=== PATIENT | male | born 1930 | race Caucasian/White ===

== ENCOUNTER 2018-05-09 16:33 | Inpatient (IN) | payer MEDICARE, OTHER ==
[~2018-05-09] VITALS: Ht 182.9 cm; Wt 71.4 kg
--- NOTE | ~2018-05-09 | CN ---
PATIENT NAME:SHIRLEY DUNHAM MEDICAL RECORD: [id number] : [birth year] LOCATION:[facility] D.2128 ADMIT DATE: 05/10/18 ACCOUNT: [id number] CONSULTING PHYSICIAN: JOSEPH SILVERIO MD REFERRING PHYSICIAN: KATLYN ALEJANDRA MD DATE OF CONSULTATION: 05/11/2018 HISTORY OF PRESENT ILLNESS: An 87-year-old gentleman with no known history of coronary artery disease, actually healthy for 87 years of age was at [facility], his place of residence, when he had a syncopal episode. No prodrome, no visual changes, no postictal state, found to have a compression fracture. We are asked to see him concerning his cardiovascular status. PAST MEDICAL HISTORY: Includes a history of cataract surgery and BPH. ALLERGIES: No known allergies. MEDICATIONS: Vitamin B and vitamin D supplementation only. SOCIAL HISTORY: Retired from education. He is a nonsmoker, nondrinker. Easily able to take care of his ADLs. REVIEW OF SYSTEMS: The patient reports easy bruising but reports no swollen glands. The patient reports no fever, no night sweats, no significant weight gain, no significant weight loss. No significant exercise tolerance. The patient reports no dry eyes, no irritation, no vision change. Patient reports no difficulty hearing and no ear pain. Patient reports no frequent nose bleeds or nose and sinus problems. Patient reports on arm pain on exertion. No shortness of breath while lying down. No history of heart murmur. Patient reports no cough, no wheezing or coughing up blood. Patient reports no abdominal pain, no vomiting. Normal appetite. No diarrhea and not vomiting blood. No nausea and no constipation. Patient reports no incontinence. No difficulty urinating. No hematuria. No increased frequency. Patient reports no muscle aches. No weakness, no arthralgias, no back pain. No swelling of the extremities. Patient reports no abnormal mole, no jaundice, no rashes. Reports no loss of consciousness. No weakness and no numbness. No seizures, dizziness, or headaches. The patient reports no depression, no sleep disturbance, feeling safe in a relationship and no alcohol abuse. Patient reports on fatigue. Reports no runny nose or sinus pressure. No itching, no hives, and no frequent sneezing. PHYSICAL EXAMINATION: GENERAL: Pleasant gentleman, appears stated age, in no acute distress. VITAL SIGNS: Blood pressure 137/77, pulse 84 and regular. HEENT: Normocephalic, atraumatic. NECK: No bruits noted. HEART: Regular. II/ systolic ejection murmur. LUNGS: Clear. ABDOMEN: Soft, nontender. EXTREMITIES: Pulses 2+. No edema. DIAGNOSTIC DATA: ECG without acute change. IMPRESSION: Syncope. Difficult to elucidate the etiology at this point. Dopplers are negative. Telemetry: No significant bradyarrhythmias or CONSULT REPORT [id number] SHIRLEY DUNHAM tachyarrhythmias. Echocardiogram study shows preserved LV function. Agree with current management. No contraindication to a rehabilitation stay if indicated from a cardiovascular standpoint. TRANSINT:[id number] Voice Confirmation ID: [id number] DOCUMENT ID: [id number] JOSEPH SILVERIO MD at 1505 CC: [id number] DICTATION DATE: 05/11/18 1516 MODEL MAKER PLASTER: 05/11/18 1530 DIS IN 05/12/18 [facility] [address] [place] [address]
--- NOTE | ~2018-05-09 | EC ---
PATIENT:SHIRLEY DUNHAM DATE OF SERVICE: 05/09/18 SEX: M MEDICAL RECORD: [id number] DATE OF : [birth year] LOCATION:D.M2 D.212 AGE OF PATIENT: 87 ADMISSION DATE: 05/10/18 REFERRING PHYSICIAN: INTERPRETING PHYSICIAN: GAY ROMAN MD ECHOCARDIOGRAM REPORT ECHO CHARGES 4 ECHO COMPLETE Date: 05/10 CLINICAL DIAGNOSIS: SYNCOPE ECHOCARDIOGRAPHIC MEASUREMENTS (adult normal given) AC root (d.<3.7cm) 3.2 cm LV Septum d (<1.2 cm> 1.5 cm Valve Excursion 1.3 cm LV Septum (systole) 1.6 cm Left Atria (s.<4.0cm> 4.0 cm LVPW d(<1.2cm) 1.3 cm RV (d.<2.3cm) 3.6 cm LVPW (sytole) 1.6 cm LV diastole(<5.6CM) 5.3 cm MV E-F(>70mm/sec) cm LV systole 4.1 cm LVOT Diameter 4.1 cm MV exc.(>10mm) 1.4 cm Est.ejection fraction (50-75%) % DOPPLER: LVIT cm/sec A 66.0 cm/sec E 46.0 cm/sec LA cm/sec RVSP 31 mmHg LVOT 86 cm/sec AOP1/2T m/s Asc. Ao 165 cm/sec RVOT 68 cm/sec RA cm/sec PA 147 cm/sec AV Gradient Peak 10.84mmHg AV Mean 6.14 mmHg AV Area 1.6 cm MV Gradient Peak 2.75 mmHg MV Mean 1.32 mmHg MV Area cm COMMENTS: Tar Worker: Priscilla HODGES Firer Tunnel Kiln: 1 Dr. Roman TAPE# PACS Pericardial Effusion N DATE OF SERVICE: 05/10/2018 ECHOCARDIOGRAM DATE OF SERVICE: 05/10/2018 FINDINGS: 1. Left ventricular chamber size is within normal limits. Left ventricular systolic function is normal. Overall ejection fraction estimated at 60%. 2. Left atrium, right atrium, and right ventricle chamber sizes are mildly ECHOCARDIOGRAM REPORT [id number] SHIRLEY DUNAHM dilated. 3. Valvular structures: Aortic valve demonstrates mild calcific aortic stenosis, valve area calculates 1.6 cm-squared with gradient of 11 mm across the valve. 4. The mitral valve. The mitral valve demonstrates prolapse of the posterior leaflet. The remaining valvular structures have normal structure and motion. Doppler interrogation elsewise reveals mild aortic insufficiency, moderate mitral regurgitation, [id number]-[id number] tricuspid regurgitation, no other valvular insufficiency or stenosis. Pulmonary systolic pressure is preserved at 31 mmHg. 5. No evidence of pericardial effusion or left ventricular thrombus. TRANSINT:[id number] Voice Confirmation ID: [id number] DOCUMENT ID: [id number] GAY ROMAN MD at 1325 CC: [id number] DICTATION DATE: 05/10/18 1131 SIGHTSEEING GUIDE: 05/10/18 1213 ADM IN [facility] [address] [place] [place] [id number]
[2018-05-09] MEDS ORDERED: CALCIUM 250+D T1 TAB PO (16:39)
[2018-05-09] MEDS ORDERED: VITAMIN B-12500 MCG PO (16:39)
[2018-05-09 17:12] LABS: BASOPHILS 0.2 % (0-2); EOSINOPHILS 0.4 % (0-7); HEMATOCRIT 40.7 % (42.0-54.0); HEMOGLOBIN 13.5 g/dL (13.5-17.5); IMMATURE GRANULOCYTES 0.4 % (0-5); LYMPHOCYTES 18.5 % (15-50); MCH 31.1 pg (26.0-34.0); MCHC 33.2 g/dL (31.0-37.0); MCV 93.8 fL (80.0-100.0); MEAN PLATELET VOLUME 12.3 fL (7.4-10.4); MONOCYTES 11.6 % (2-11); NEUTROPHILS 68.9 % (40-80); RBC 4.34 10x6/uL (4.20-6.10); WBC 5.6 10x3/uL (4.8-10.8)
[2018-05-09 17:19] LABS: PLATELET COUNT 108 10x3/uL (130-400)
[2018-05-09 17:27] LABS: ALBUMIN 3.4 g/dL (3.4-5.0); ALKALINE PHOSPHATASE 67 U/L (46-116); ALT (SGPT) 23 U/L (10-68); BILIRUBIN - TOTAL 0.45 mg/dL (0.2-1.3); CALC OSMOLALITY 286 mosm/kg (275-300); CALCIUM 8.6 mg/dL (8.5-10.1); CARBON DIOXIDE 31.2 mmol/L (21.0-32.0); CHLORIDE - SERUM 105 mmol/L (98-107); GLUCOSE 95 mg/dL (74-106); POTASSIUM - SERUM 4.4 mmol/L (3.5-5.1); SODIUM 143 mmol/L (136-145); UREA NITROGEN 17 mg/dL (7-18); eGFR NON AFRICAN AMERICAN 75 mL/min (90-120)
[2018-05-09 17:49] LABS: CKMB 1.3 U/L (0.0-3.6); CREATINE KINASE 74 UL (21-232)
[2018-05-09 17:50] LABS: TROPONIN-I < 0.017 ng/mL (0.000-0.060)
[2018-05-09 18:53] LABS: APPEARANCE CLEAR (CLEAR); BILIRUBIN NEGATIVE (NEGATIVE); COLOR YELLOW (YELLOW); GLUCOSE NEGATIVE (NEGATIVE); KETONE NEGATIVE (NEGATIVE); NITRITE NEGATIVE (NEGATIVE); PROTEIN NEGATIVE (NEGATIVE); SPECIFIC GRAVITY 1.015 (1.005-1.020); UROBILINOGEN NORMAL (NORMAL)
[2018-05-09 18:57] LABS: RED CELLS - URINE OCC /hpf (0-5); WHITE CELLS - URINE 0-5 /hpf (0-5)
[2018-05-09 18:58] LABS: BACTERIA FEW /hpf (NONE SEEN)
[2018-05-09 19:30] VITALS: BP 168/93
[2018-05-09 20:39] LABS: CKMB 1.3 U/L (0.0-3.6); CREATINE KINASE 65 UL (21-232)
[2018-05-09 20:45] LABS: TROPONIN-I < 0.017 ng/mL (0.000-0.060)
[2018-05-10 01:03] VITALS: BP 173/97; BMI 22.5
[2018-05-10 02:33] LABS: CKMB 1.4 U/L (0.0-3.6); CREATINE KINASE 67 UL (21-232); TROPONIN-I < 0.017 ng/mL (0.000-0.060)
[2018-05-10 06:57] VITALS: BP 152/89
[2018-05-10 08:10] LABS: BASOPHILS 0.3 % (0-2); EOSINOPHILS 0 % (0-7); HEMATOCRIT 42.8 % (42.0-54.0); HEMOGLOBIN 14.4 g/dL (13.5-17.5); IMMATURE GRANULOCYTES 0.1 % (0-5); LYMPHOCYTES 17.1 % (15-50); MCH 31.5 pg (26.0-34.0); MCHC 33.6 g/dL (31.0-37.0); MCV 93.7 fL (80.0-100.0); MEAN PLATELET VOLUME 11.9 fL (7.4-10.4); NEUTROPHILS 72.5 % (40-80); RBC 4.57 10x6/uL (4.20-6.10); RDW 13.7 % (11.5-14.5)
[2018-05-10 08:13] LABS: PLATELET COUNT 147 10x3/uL (130-400); WBC 7.7 10x3/uL (4.8-10.8)
[2018-05-10 08:50] LABS: CALCIUM 8.7 mg/dL (8.5-10.1); CARBON DIOXIDE 28.1 mmol/L (21.0-32.0); CHLORIDE - SERUM 103 mmol/L (98-107); CKMB 1.5 U/L (0.0-3.6); CREATINE KINASE 60 UL (21-232); CREATININE - SERUM 0.8 mg/dL (0.6-1.3); GLUCOSE 112 mg/dL (74-106); SODIUM 136 mmol/L (136-145); TROPONIN-I < 0.017 ng/mL (0.000-0.060); eGFR NON AFRICAN AMERICAN > 90 mL/min (90-120)
[2018-05-10 08:51] LABS: CALC OSMOLALITY 271 mosm/kg (275-300); POTASSIUM - SERUM 3.5 mmol/L (3.5-5.1); UREA NITROGEN 11 mg/dL (7-18)
[2018-05-10 09:18] VITALS: BP 145/71
[2018-05-10 12:39] VITALS: BP 136/77
[2018-05-10 16:02] LABS: CKMB 1.8 U/L (0.0-3.6); CREATINE KINASE 57 UL (21-232)
[2018-05-10 16:05] LABS: TROPONIN-I < 0.017 ng/mL (0.000-0.060)
[2018-05-10 16:34] VITALS: BP 138/77
[2018-05-10 20:38] LABS: CKMB 2.1 U/L (0.0-3.6); CREATINE KINASE 69 UL (21-232); TROPONIN-I < 0.017 ng/mL (0.000-0.060)
[2018-05-10 21:08] VITALS: BP 120/71
[2018-05-11 01:40] VITALS: BP 152/76
[2018-05-11 03:44] LABS: CKMB 1.9 U/L (0.0-3.6); CREATINE KINASE 72 UL (21-232)
[2018-05-11 03:49] LABS: TROPONIN-I < 0.017 ng/mL (0.000-0.060)
[2018-05-11 05:40] VITALS: BP 133/73
[2018-05-11 07:09] LABS: BASOPHILS 0 % (0-2); EOSINOPHILS 0.1 % (0-7); HEMATOCRIT 42.2 % (42.0-54.0); HEMOGLOBIN 14.1 g/dL (13.5-17.5); IMMATURE GRANULOCYTES 0.1 % (0-5); LYMPHOCYTES 8.4 % (15-50); MCH 31.3 pg (26.0-34.0); MCHC 33.4 g/dL (31.0-37.0); MCV 93.8 fL (80.0-100.0); MEAN PLATELET VOLUME 12.5 fL (7.4-10.4); MONOCYTES 12.3 % (2-11); NEUTROPHILS 79.1 % (40-80); PLATELET COUNT 138 10x3/uL (130-400); RDW 13.6 % (11.5-14.5); WBC 7.5 10x3/uL (4.8-10.8)
[2018-05-11 07:46] LABS: ALBUMIN 3.2 g/dL (3.4-5.0); ALKALINE PHOSPHATASE 68 U/L (46-116); ALT (SGPT) 19 U/L (10-68); CALC OSMOLALITY 282 mosm/kg (275-300); CALCIUM 8.4 mg/dL (8.5-10.1); CARBON DIOXIDE 30.7 mmol/L (21.0-32.0); CHLORIDE - SERUM 106 mmol/L (98-107); CREATININE - SERUM 0.6 mg/dL (0.6-1.3); GLUCOSE 103 mg/dL (74-106); POTASSIUM - SERUM 3.9 mmol/L (3.5-5.1); PROTEIN - SERUM 6.5 g/dL (6.4-8.2); SODIUM 143 mmol/L (136-145); UREA NITROGEN 8 mg/dL (7-18); eGFR NON AFRICAN AMERICAN > 90 mL/min (90-120)
[2018-05-11 09:38] VITALS: BP 135/78
[2018-05-11 12:00] VITALS: BP 137/77
[2018-05-11 13:43] VITALS: Ht 182.9 cm; Wt 71.4 kg
[2018-05-11 17:35] VITALS: BP 121/72
[2018-05-11 20:36] VITALS: BP 151/77
[2018-05-12 00:51] VITALS: BP 127/72
[2018-05-12 04:51] LABS: BASOPHILS 0 % (0-2); EOSINOPHILS 0.1 % (0-7); HEMATOCRIT 40.5 % (42.0-54.0); HEMOGLOBIN 13.5 g/dL (13.5-17.5); IMMATURE GRANULOCYTES 0.2 % (0-5); LYMPHOCYTES 9.8 % (15-50); MCH 31.3 pg (26.0-34.0); MCHC 33.3 g/dL (31.0-37.0); MEAN PLATELET VOLUME 12.2 fL (7.4-10.4); MONOCYTES 14.9 % (2-11); PLATELET COUNT 144 10x3/uL (130-400); RBC 4.31 10x6/uL (4.20-6.10); RDW 13.7 % (11.5-14.5)
[2018-05-12 05:13] LABS: ALBUMIN 2.9 g/dL (3.4-5.0); ALKALINE PHOSPHATASE 63 U/L (46-116); ALT (SGPT) 17 U/L (10-68); BILIRUBIN - TOTAL 1.23 mg/dL (0.2-1.3); CALC OSMOLALITY 279 mosm/kg (275-300); CALCIUM 8.6 mg/dL (8.5-10.1); CHLORIDE - SERUM 105 mmol/L (98-107); CREATININE - SERUM 0.7 mg/dL (0.6-1.3); GLUCOSE 117 mg/dL (74-106); POTASSIUM - SERUM 3.7 mmol/L (3.5-5.1); PROTEIN - SERUM 6.3 g/dL (6.4-8.2); SODIUM 140 mmol/L (136-145); eGFR NON AFRICAN AMERICAN > 90 mL/min (90-120)
[2018-05-12 05:14] LABS: UREA NITROGEN 12 mg/dL (7-18)
[2018-05-12 06:20] VITALS: BP 120/66
[2018-05-12] MEDS ORDERED: NORCO-5 PO (14:43)
[2018-05-12] MEDS ORDERED: PROTONIX40 MG PO (14:43)
[2018-05-12] MEDS ORDERED: HYDROCODON-ACE1 EAC7 PO (14:56)
== END 2018-05-12 18:15 | DRG 312 ==
LOC: D.ER 16:33 → D.M2 19:52 → D.EDHOLD 19:52 → OBSVTIME 19:53 → D.M2 21:43
PROVIDERS: Family Medicine
DX: R55 Syncope and collapse (principal); M48.56XA Collapsed vertebra, not elsewhere classified, lumbar region, initial encounter for fracture; S01.01XA Laceration without foreign body of scalp, initial encounter; W19.XXXA Unspecified fall, initial encounter; I08.3 Combined rheumatic disorders of mitral, aortic and tricuspid valves; N40.0 Benign prostatic hyperplasia without lower urinary tract symptoms

== ENCOUNTER 2018-05-12 16:55 | Inpatient (IN) | payer MEDICARE, OTHER ==
[~2018-05-12] VITALS: Ht 182.9 cm; Wt 75.3 kg
--- NOTE | ~2018-05-12 | RHP ---
PATIENT: SHIRLEY DUNHAM MEDICAL RECORD: [id number] ACCOUNT: [id number] LOCATION:[facility]1119 : [birth year] ADMISSION DATE: 05/12/18 REHABILITATION HISTORY AND PHYSICAL EXAMINATION POST ADMISSION PHYSICIAN EXAMINATION POST-ADMISSION PHYSICAL EXAMINATION AND HISTORY AND PHYSICAL DATE OF ADMISSION: 05/12/2018 ADMITTING DIAGNOSIS: L4 compression fracture. HISTORY OF PRESENT ILLNESS: The patient admitted to the inpatient rehab with spinal cord dysfunction, traumatic, secondary to an L4 compression fracture. He is an 87-year-old gentleman, who lives at [facility]. He presented to the Emergency Room after a syncopal spell. He remembers standing and then passing out. He was admitted with complaints of back pain. He has no history of prior compression fracture or back pain. X-rays of the lumbar spine showed mild compression with L4 fracture. He has known history of BPH, colorectal cancer, peripheral neuropathy, hepatitis. He was seen and followed by cardiology, neurosurgery, PT and speech therapy. He has been placed on nectar-thickened liquids. He is on telemetry. He has had some recent episodes noted of urinary incontinence that is new. He lives at [facility] in an apartment. Cares for his that has Alzheimer's. He was independent with ADLs and moderately independent with the use of rolling walker. He is currently set up max assist for ADLs and [id number] assist for mobility. He plans to return back to his apartment with his and hopefully get back to his prior level of functioning. Comorbidities in this patient include oropharyngeal dysphagia, acute abrasion to scalp, syncope, acute head injury, compression fracture, back pain, weakness, self-care deficit. He has got a history of dilatation of his atrium. He also has a gradient across one of his valves in his heart. PAST MEDICAL HISTORY: Significant for BPH, colorectal cancer, hepatitis, and peripheral neuropathy. PAST SURGICAL HISTORY: Includes transurethral resection of the prostate, cataract surgery, and colon resection. ALLERGIES: No known drug allergies. CURRENT MEDICATIONS: Include Protonix 40 mg daily. He is on B12 at 500 mcg daily, hydrocodone 5/325 one tab every 6 hours p.r.n., and MiraLax 17 g in 8 ounces of water daily. HABITS: No current alcohol or tobacco use. FAMILY HISTORY: Noncontributory. SOCIAL HISTORY: The patient hopes to return back home and get back to his prior level of functioning. REVIEW OF SYSTEMS: GENERAL: Does complain of weakness and fatigue. HEENT: Denies cold, cough, or congestion. HISTORY AND PHYSICAL [id number] DUNHAMSHIRLEY Palmer CARDIOVASCULAR: Denies chest pain. PHYSICAL EXAMINATION: VITAL SIGNS: Stable, afebrile. GENERAL: Elderly gentleman, in no acute distress, alert upon exam. HEENT: Normocephalic and atraumatic. Mucosa moist. NECK: Supple. No adenopathy. LUNGS: Clear. HEART: Regular rate and rhythm, although he is bradycardic. ABDOMEN: Benign. EXTREMITIES: No clubbing. NEUROLOGIC: He does have noted weakness. LABORATORY DATA: White count is 10.3, H&H of 14 and 41, and platelet count was noted to be 119. Sodium 138, potassium 4.1, BUN and creatinine of 14 and 0.7, blood sugar is noted to be 97. ASSESSMENT: This is an 87-year-old gentleman admitted to the rehab with a working diagnosis of spinal cord dysfunction secondary to a compression fracture. The patient has potential to make improvement. We will institute the following multidisciplinary therapies including, but not limited to, physical, occupational, respiratory, speech, nutritional services, prosthetics, and orthotics. Given his complex medical condition and risk for more complications, rehabilitation services cannot be provided at a low level of care such as usp facility. PLAN: 1. Admit to [facility] for intensive inpatient therapy to include the following disciplines: A. Physical therapy to improve gait, all transfer skills and bed mobility to a modified independent level. B. Occupational therapy to improve activities of daily living to a modified independent level. C. Case management to assist with discharge planning and placement options. D. Nutrition to assist with nutritional needs. E. Rehabilitation nursing to assist in monitoring the patient's underlying medical conditions and to assist with any type of bowel or bladder management. 2. The patient's current medication and medical care will be continued. 3. The patient will be placed on standard fall precautions. 4. The patient's estimated length of stay is approximately 7 to 10 days. 5. We will discuss this patient during care team staff meeting this week. TRANSINT:[id number] Voice Confirmation ID: [id number] DOCUMENT ID: [id number] ALISSA notes whether there has been none or any medical/functional change since admission: - No change since prescreen. ALISSA attests patient continues to be appropriate for IRF: - Continues to be appropriate. HISTORY AND PHYSICAL [id number] SHIRLEY DUNHAM SCOTT MD at 1443 CC: [id number] DICTATION DATE: 05/13/18 0850 POULTRY INSPECTOR: 05/13/18 0953 ADM IN [place] [id number] [place] [id number]
--- NOTE | ~2018-05-12 | CN ---
PATIENT NAME:SHIRLEY DUNHAM MEDICAL RECORD: [id number] : [birth year] LOCATION:[facility]1119 ADMIT DATE: 05/12/18 ACCOUNT: [id number] CONSULTING PHYSICIAN: CRUZ HART MD REFERRING PHYSICIAN: JESSICA LEBRON MD DATE OF CONSULTATION: 05/25/2018 HISTORY OF PRESENT ILLNESS: Mr. Dunham is an 87-year-old male. He is admitted for a compression fracture in his back. He has been having problems with dizziness for he gets is roughly 3 weeks in total. He says the each event has just occurred spontaneously and almost instantaneously. He has been standing for every time, but sometimes such as [employer], he had been up walking around for hours, so it did not seem orthostatic or related with standing up. He has not had any problems when he was sitting or lying down. The symptoms come on almost instantly, it feels like he is going to faint. He can just feel himself going down. He does not have any false perception of movement or spinning or any ear symptoms, although he says when he is really lightheaded he does feel like his voice is echoing in his head or other voices are. He says the symptoms go away almost immediately upon sitting down within less than a minute, it was completely back to normal and his symptoms have resolved. He does not have any lateralizing ear symptoms, may be hard of hearing, but both ears seem the same and nothing has changed recently. He does not have any tenderness. There is no nausea or vomiting. PAST MEDICAL HISTORY: Reviewed on the chart. PHYSICAL EXAMINATION: GENERAL: He is in a wheelchair. He is alert and oriented. Good historian, normal voice. FACE: Normal, symmetric, no lesions. EYES: Sclerae and conjunctivae are normal. EARS: Canals and TMs are normal. No middle ear effusion, no retraction, they look good. NOSE: No mass, polyps or drainage. ORAL CAVITY AND OROPHARYNX: Tongue protrudes in the midline. Pharynx is normal. Palate is normal. NECK: No masses, no adenopathy. No thyromegaly. No bruits. NEUROLOGIC: His oculocephalic reflex is intact. No nystagmus in any field of gaze. No tremor, no rigidity. His tuning forks Hendrix and Spencer are normal with 256. IMPRESSION: Dizziness. Really looks like he is having syncopal/presyncopal episodes. There is really no indication of a vestibular etiology for his problems. It is hard to say what the cause might be, but does not seem related to an ear problem. TRANSINT:[id number] Voice Confirmation ID: [id number] DOCUMENT ID: [id number] CONSULT REPORT [id number] SHIRLEY DUNHAM, CRUZ PHILLIPS at 1254 CC: [id number] DICTATION DATE: 05/25/18 1357 LINOLEUM FLOOR LAYER: 05/25/18 1430 DIS IN 05/26/18 [place] [id number] [place] [id number]
[~2018-05-12 16:55] MED LIST: CALCIUM 250+D T1 TAB PO; HYDROCODON-ACE1 EAC7 PO; NORCO-5 PO; PROTONIX40 MG PO; VITAMIN B-12500 MCG PO
[2018-05-12 19:00] VITALS: BP 108/60
[2018-05-12 22:51] VITALS: BP 108/60
[2018-05-13 07:02] LABS: HEMATOCRIT 41.1 % (42.0-54.0); HEMOGLOBIN 13.9 g/dL (13.5-17.5); LYMPHOCYTES 11.3 % (15-50); MCH 31.4 pg (26.0-34.0); MCHC 33.8 g/dL (31.0-37.0); MEAN PLATELET VOLUME 11.8 fL (7.4-10.4); NEUTROPHILS 78.2 % (40-80); PLATELET COUNT 119 10x3/uL (130-400); RBC 4.42 10x6/uL (4.20-6.10); RDW 14.1 % (11.5-14.5); WBC 10.3 10x3/uL (4.8-10.8)
[2018-05-13 07:26] LABS: CALC OSMOLALITY 276 mosm/kg (275-300); CALCIUM 8.5 mg/dL (8.5-10.1); CARBON DIOXIDE 28.1 mmol/L (21.0-32.0); CHLORIDE - SERUM 104 mmol/L (98-107); CREATININE - SERUM 0.7 mg/dL (0.6-1.3); GLUCOSE 97 mg/dL (74-106); POTASSIUM - SERUM 4.1 mmol/L (3.5-5.1); SODIUM 138 mmol/L (136-145); UREA NITROGEN 14 mg/dL (7-18); eGFR NON AFRICAN AMERICAN > 90 mL/min (90-120)
[2018-05-13 08:00] VITALS: BP 122/55
[2018-05-13 10:20] VITALS: Ht 182.9 cm; Wt 75.3 kg
[2018-05-13 19:00] VITALS: BP 113/47
[2018-05-15 05:46] VITALS: BP 134/64
[2018-05-15 08:00] VITALS: BP 118/61
[2018-05-15 21:00] VITALS: BP 130/76
[2018-05-16 07:28] LABS: BASOPHILS 0 % (0-2); EOSINOPHILS 1.2 % (0-7); HEMATOCRIT 38.5 % (42.0-54.0); IMMATURE GRANULOCYTES 0.3 % (0-5); LYMPHOCYTES 16.3 % (15-50); MCH 31.2 pg (26.0-34.0); MCHC 33.8 g/dL (31.0-37.0); MCV 92.3 fL (80.0-100.0); MEAN PLATELET VOLUME 11.8 fL (7.4-10.4); MONOCYTES 13.3 % (2-11); NEUTROPHILS 68.9 % (40-80); RBC 4.17 10x6/uL (4.20-6.10); RDW 13.4 % (11.5-14.5); WBC 5.8 10x3/uL (4.8-10.8)
[2018-05-16 07:34] LABS: PLATELET COUNT 170 10x3/uL (130-400)
[2018-05-16 07:45] LABS: CALC OSMOLALITY 279 mosm/kg (275-300); CARBON DIOXIDE 30.7 mmol/L (21.0-32.0); CHLORIDE - SERUM 105 mmol/L (98-107); CREATININE - SERUM 0.5 mg/dL (0.6-1.3); GLUCOSE 107 mg/dL (74-106); POTASSIUM - SERUM 3.4 mmol/L (3.5-5.1); SODIUM 141 mmol/L (136-145); UREA NITROGEN 11 mg/dL (7-18); eGFR NON AFRICAN AMERICAN > 90 mL/min (90-120)
[2018-05-16 07:49] LABS: CALCIUM 9.1 mg/dL (8.5-10.1)
[2018-05-16 08:23] VITALS: BP 139/78
[2018-05-16 19:00] VITALS: BP 113/62
[2018-05-17 08:28] VITALS: BP 125/70
[2018-05-17 19:00] VITALS: BP 116/74
[2018-05-18 07:00] LABS: BASOPHILS 0.2 % (0-2); EOSINOPHILS 1.1 % (0-7); HEMATOCRIT 39.5 % (42.0-54.0); IMMATURE GRANULOCYTES 0.2 % (0-5); LYMPHOCYTES 20.7 % (15-50); MCH 30.9 pg (26.0-34.0); MCHC 32.9 g/dL (31.0-37.0); MCV 93.8 fL (80.0-100.0); MEAN PLATELET VOLUME 11.9 fL (7.4-10.4); MONOCYTES 14.3 % (2-11); NEUTROPHILS 63.5 % (40-80); RBC 4.21 10x6/uL (4.20-6.10); RDW 13.8 % (11.5-14.5); WBC 6.4 10x3/uL (4.8-10.8)
[2018-05-18 07:07] LABS: PLATELET COUNT 227 10x3/uL (130-400)
[2018-05-18 07:27] LABS: CALCIUM 8.6 mg/dL (8.5-10.1); CARBON DIOXIDE 32.4 mmol/L (21.0-32.0); CHLORIDE - SERUM 105 mmol/L (98-107); GLUCOSE 95 mg/dL (74-106); SODIUM 143 mmol/L (136-145)
[2018-05-18 07:31] LABS: CALC OSMOLALITY 285 mosm/kg (275-300); CREATININE - SERUM 0.7 mg/dL (0.6-1.3); UREA NITROGEN 16 mg/dL (7-18); eGFR NON AFRICAN AMERICAN > 90 mL/min (90-120)
[2018-05-18 08:19] VITALS: BP 143/67
[2018-05-18 19:00] VITALS: BP 117/67
[2018-05-19 08:25] VITALS: BP 153/79
[2018-05-19 19:00] VITALS: BP 113/49
[2018-05-20 06:24] LABS: BASOPHILS 0.3 % (0-2); EOSINOPHILS 1.4 % (0-7); HEMOGLOBIN 12.3 g/dL (13.5-17.5); IMMATURE GRANULOCYTES 0.3 % (0-5); LYMPHOCYTES 17.9 % (15-50); MCH 30.6 pg (26.0-34.0); MCHC 32.4 g/dL (31.0-37.0); MCV 94.5 fL (80.0-100.0); MONOCYTES 12.9 % (2-11); NEUTROPHILS 67.2 % (40-80); PLATELET COUNT 246 10x3/uL (130-400); RBC 4.02 10x6/uL (4.20-6.10); RDW 13.8 % (11.5-14.5); WBC 7.4 10x3/uL (4.8-10.8)
[2018-05-20 07:02] LABS: CALC OSMOLALITY 288 mosm/kg (275-300); CALCIUM 8.3 mg/dL (8.5-10.1); CARBON DIOXIDE 31.7 mmol/L (21.0-32.0); CHLORIDE - SERUM 106 mmol/L (98-107); CREATININE - SERUM 0.7 mg/dL (0.6-1.3); GLUCOSE 81 mg/dL (74-106); POTASSIUM - SERUM 4.3 mmol/L (3.5-5.1); SODIUM 145 mmol/L (136-145); UREA NITROGEN 15 mg/dL (7-18); eGFR NON AFRICAN AMERICAN > 90 mL/min (90-120)
[2018-05-20 08:14] VITALS: BP 138/85
[2018-05-20 19:00] VITALS: BP 129/72
[2018-05-21 08:00] VITALS: BP 140/76
[2018-05-22 10:37] VITALS: BP 139/59
[2018-05-22 20:00] VITALS: BP 126/63
[2018-05-23 07:07] LABS: BASOPHILS 0 % (0-2); EOSINOPHILS 1.1 % (0-7); HEMATOCRIT 41.3 % (42.0-54.0); HEMOGLOBIN 13.4 g/dL (13.5-17.5); IMMATURE GRANULOCYTES 0.3 % (0-5); LYMPHOCYTES 21.7 % (15-50); MCH 30.6 pg (26.0-34.0); MCHC 32.4 g/dL (31.0-37.0); MCV 94.3 fL (80.0-100.0); MEAN PLATELET VOLUME 11.6 fL (7.4-10.4); MONOCYTES 9.8 % (2-11); NEUTROPHILS 67.1 % (40-80); PLATELET COUNT 247 10x3/uL (130-400); RBC 4.38 10x6/uL (4.20-6.10); RDW 13.9 % (11.5-14.5); WBC 7.5 10x3/uL (4.8-10.8)
[2018-05-23 07:22] LABS: CALC OSMOLALITY 279 mosm/kg (275-300); CALCIUM 8.5 mg/dL (8.5-10.1); CHLORIDE - SERUM 105 mmol/L (98-107); CREATININE - SERUM 0.9 mg/dL (0.6-1.3); GLUCOSE 92 mg/dL (74-106); POTASSIUM - SERUM 4.1 mmol/L (3.5-5.1); SODIUM 140 mmol/L (136-145); UREA NITROGEN 15 mg/dL (7-18); eGFR NON AFRICAN AMERICAN 84 mL/min (90-120)
[2018-05-23 08:00] VITALS: BP 125/66
[2018-05-23 19:00] VITALS: BP 124/69
[2018-05-24 08:22] VITALS: BP 117/60
[2018-05-24 19:00] VITALS: BP 129/66
[2018-05-25 07:22] LABS: BASOPHILS 0.1 % (0-2); HEMATOCRIT 44.4 % (42.0-54.0); HEMOGLOBIN 14.6 g/dL (13.5-17.5); IMMATURE GRANULOCYTES 0.4 % (0-5); LYMPHOCYTES 21.8 % (15-50); MCH 31.3 pg (26.0-34.0); MCHC 32.9 g/dL (31.0-37.0); MCV 95.1 fL (80.0-100.0); MONOCYTES 11.6 % (2-11); NEUTROPHILS 65.1 % (40-80); PLATELET COUNT 296 10x3/uL (130-400); RBC 4.67 10x6/uL (4.20-6.10); RDW 14.1 % (11.5-14.5); WBC 7.3 10x3/uL (4.8-10.8)
[2018-05-25 07:45] LABS: CALC OSMOLALITY 284 mosm/kg (275-300); CALCIUM 8.9 mg/dL (8.5-10.1); CARBON DIOXIDE 32.6 mmol/L (21.0-32.0); CHLORIDE - SERUM 104 mmol/L (98-107); CREATININE - SERUM 0.8 mg/dL (0.6-1.3); GLUCOSE 98 mg/dL (74-106); POTASSIUM - SERUM 3.7 mmol/L (3.5-5.1); SODIUM 143 mmol/L (136-145); UREA NITROGEN 13 mg/dL (7-18); eGFR NON AFRICAN AMERICAN > 90 mL/min (90-120)
[2018-05-25 08:16] VITALS: BP 110/70
[2018-05-25 19:00] VITALS: BP 109/54
[2018-05-26 08:00] VITALS: BP 144/65
[2018-05-26] MEDS ORDERED: NORCO-5 PO (14:56)
== END 2018-05-26 16:35 | disposition home health service (06) | DRG 561 ==
LOC: D.REHAB 16:55
PROVIDERS: Emergency Medicine
DX: S32.049D Unspecified fracture of fourth lumbar vertebra, subsequent encounter for fracture with routine healing (principal); W19.XXXD Unspecified fall, subsequent encounter; R13.12 Dysphagia, oropharyngeal phase; R55 Syncope and collapse; R53.1 Weakness; S00.01XD Abrasion of scalp, subsequent encounter; M54.9 Dorsalgia, unspecified; I08.3 Combined rheumatic disorders of mitral, aortic and tricuspid valves; R06.02 Shortness of breath

== ENCOUNTER 2018-06-17 16:12 | Emergency (ER) | payer MEDICARE, OTHER ==
[~2018-06-17] VITALS: Ht 182.9 cm; Wt 75.0 kg
[2018-06-17 16:19] VITALS: Ht 182.9 cm; Wt 75.0 kg
[2018-06-17 20:00] VITALS: BP 155/92
== END 2018-06-17 20:00 | disposition home or self-care (01) ==
LOC: D.ER 16:12
DX: M25.551 Pain in right hip (principal); W18.30XA Fall on same level, unspecified, initial encounter; Y93.89 Activity, other specified; Y92.129 Unspecified place in nursing home as the place of occurrence of the external cause; Z85.038 Personal history of other malignant neoplasm of large intestine; Z85.048 Personal history of other malignant neoplasm of rectum, rectosigmoid junction, and anus

== ENCOUNTER 2018-08-26 07:38 | Inpatient (IN) | payer MEDICARE, OTHER ==
[~2018-08-26] VITALS: Ht 182.9 cm; Wt 63.5 kg
--- NOTE | ~2018-08-26 | MORECARE ---
CASE MANAGEMENT DISCHARGE SUMMARY PATIENT: SARIAH DUNHAM UNIT: [id number] ADM DATE: 08/26/18 AGE: 88 : [birth year] SEX: M ROOM/BED: D.2227 AUTHOR: MARQUISE,DOC PHYSICIAN: REFERRING PHYSICIAN: DANELLE GONZALEZ MD DATE OF SERVICE: 09/09/18 Discharge Plan Patient Name: SARIAH DUNHAM Facility: [facility]:[place] : 1930 Planned Disposition: Assisted Living Anticipated Discharge Date: 08/29/18 Discharge Date: Expected LOS: 3 Initial Reviewer: [email or web address] Initial Review Date: 08/26/2018 Generated: 09/09/18 4:53 pm Comments DCP- Discharge Planning Updated by [email or web address]: Jeanne Booth on 09/09/18 2:[address] Approval for [facility]. Dr. Gonzalez states to call NEWSPAPER MANAGER for discharge orders. [facility] [place] [facility] I called and spoke to Suzanne. She will put in discharge orders. Primary nurse, Indu, informed of discharge to [facility] via ambulance tonight. I called and spoke to son, Sebastián, he is aware and agrees with discharge tonight to [facility]. DCP- Discharge Planning Updated by [email or web address]: Jeanne Booth on 09/09/18 9:[address] Spoke with Clemencia with [facility], they will be calling patient's son today to set up a time to meet with him. CM will continue to follow and assist with discharge planning/needs. DCP- Discharge Planning Updated by [email or web address]: Jeanne Booth on 09/07/18 2:[address]o from [facility] spoke with Sebastián (son) and Sebastián would like to meet with [facility] on Wednesday. CM will continue to follow and assist with discharge planning/needs. DCP- Discharge Planning Updated by [email or web address]: Jeanne Booth on 09/07/18 2:[address] Erika and Abel with [facility] has met with the family and patient. Erika states that he is not GIP appropriate. Sebastián (patient's son) would like me to call [facility] to see if he meets [facility] for their Hospice setting. I called and spoke to Aldo and he will call son and set up a time to meet. CM will continue to follow and assist with discharge planning/needs. DCP- Discharge Planning Updated by [email or web address]: Jeanne Booth on 09/06/18 2:[address] CM met with son, Sebastián, concerning discharge planning and hospice consideration. Sebastián states that his father does not want a feeding tube and the patient told me that as well. I discussed Hospice with Sebastián and he would like me to call [facility]. Sebastián states he is unable to meet with Hospice today, but would like to see them tomorrow at 1PM. I called and spoke to Kimberlee and informed her of consult and family wishes to see tomorrow at 1. Clinical faxed to [facility]. CM will continue to follow and assist with discharge planning/needs. DCP- Discharge Planning Updated by [id number]: Jeanne Booth on 09/06/18 9:[address] No family present in the room. I will continue throughout the day to meet with the sons or contact via phone later today to discuss discharge planning again regarding Hospice. I have spoke with them before about Hospice and at the time they were not ready yet. CM will continue to follow and assist with discharge planning/needs. DCP- Discharge Planning Updated by [id number]: Jeanne Booth on 09/02/18 12:[address] CM met with sons to discuss discharge planning. Katie is asking if they have a higher level of care at [facility] for his parents. I informed them I would call and check to see if returning to [facility] can be an option. I also discussed senior care care and hospice care with them. They are not considering hospice at this time, but are considering process safety engineering technologist care placement. They would like their parents to stay together if possible. I discussed a referral agency "[facility]" and they would like me to contact them. I have called [facility] and they state at this time, the patient and his are at the lowest level of care. The person at [facility] states that if the is not longer a flight risk and is no longer combative, she could come back to [facility], but may need to have a private aide with her at all times until her is able to return. She states at this time, she would not recommend that they change to a different apartment because it would cause additional confusion for the . I spoke with Nohemi and referral given. Nohemi states she will have someone talk with them and arrange tours of facilities if needed. CM will continue to follow and assist with discharge planning/needs. DCP- Discharge Planning Updated by [email or web address]: Jeanne Booth on 08/31/18 9:[address] Spoke with patient's son (Sebastián) concerning discharge planning. He is uncertain if his father will be able to return to [facility]. He is thinking he will need rehab or skilled therapy. We discussed possible process safety engineering technologist placement as well. I provided him with MUKUL form with facilities listed. He states he will start looking at other facilities for possible placement. CM will continue to follow and assist with discharge planning/needs. DCP- Discharge Planning Updated by [id number]: Noemy Vagn on 08/26/18 12:[address] Patient Name: SARIAH DUNHAM Admission Status: ER Accout number: [id number] Admission Date: 08-26-2018 : 1930 Admission Diagnosis: Attending: DANELLE GONZALEZ Current LOS: 1 Anticipated DC Date: 08-29-2018 Planned Disposition: Assisted Living Primary Insurance: MEDICARE A & B Discharge Planning Comments: CM met with patient's son, Sebastián Dunham, to complete initial dc planning assessment. CM educated patient/son on the CM role and verbal consent given by Vitaliy to complete assessment. Patient lives at [facility] with who he is the primary cg for. His has Alzheimer's disease and requires 24/ supervision. At discharge patient plans to return to [facility] and Sebastián feels this is a safe discharge. He denied known discharge needs for the patient at this time. CM will continue to follow and will assist as needed with dc plans/needs. See below for more assessment information. Librarian Head: Noemy Vang RN, [facility] DCPIA - Discharge Planning Initial Assessment Updated by [email or web address]: Noemy Vang on 08/26/18 1:29 pm * Is the patient Alert and Oriented? Yes * How many steps to enter\\exit or inside your home? None * PCP Dr. Phelps * Pharmacy [facility] * Preadmission Environment Assisted Living * Facility Name [facility] * ADLs Partial Dependent * Partial ADLs (Assistance needed) Bathing Medication Management * Equipment Walker Wheelchair * List name and contact numbers for known caregivers / representatives who currently or will assist patient after discharge: Sebastián Dunham - son - [phone] * Verbal permission to speak to the caregivers and representatives has been obtained from the patient. Yes * Community resources currently utilized None * Additional services required to return to the preadmission environment? No * Can the patient safely return to the preadmission environment? Yes * Has this patient been hospitalized within the prior 30 days at any hospital? No Coverage Notice Reviewer: [id number] Yovanny Booth Notice Issued Date-Time: 09/09/2018 15:50 Notice Type: IM Discharge Notice Notice Delivered To: Family Member Relationship to Patient: Son Concrete Panel Installer Name: Sebastián Dunham Delivery Method: HAND - Hand Delivered Sierra Days: Prior Verbal Notification: Recipient Understood Notice: Yes Recipient Signature: Yes Med Rec Note Co-signed by Attending: Coverage Notice Comment: IMM explained, voiced understanding, copy left at bedside, original placed in MR Last DP export: 09/09/18 2:46 Patient Name: SARIAH DUNHAM Page [id number] at 1554 All edits/amendments must be made on the electronic document DICTATION DATE: 09/09/181552 ORTHODONTIST VICE PRESIDENT: HONORIO 09/09/181552 RPT#: [id number] DC DATE: STATUS: ADM IN [facility] [address] [place] [address] END OF REPORT
--- NOTE | ~2018-08-26 | MORECARE ---
CASE MANAGEMENT DISCHARGE SUMMARY PATIENT: SARIAH DUNHAM UNIT: [id number] ADM DATE: 08/26/18 AGE: 88 : [birth year] SEX: M ROOM/BED: D.2227 AUTHOR: MARQUISE,DOC PHYSICIAN: REFERRING PHYSICIAN: DANELLE GALLOWAY MD DATE OF SERVICE: 09/06/18 Discharge Plan Patient Name: SARIAH DUNHAM Facility: [facility]:[place] : 1930 Planned Disposition: Assisted Living Anticipated Discharge Date: 08/29/18 Discharge Date: Expected LOS: 3 Initial Reviewer: [email or web address] Initial Review Date: 08/26/2018 Generated: 09/06/18 4:04 pm Comments DCP- Discharge Planning Updated by [email or web address]: Jeanne Booht on 09/06/18 2:[address] CM met with son, Sebastián, concerning discharge planning and hospice consideration. Sebastián states that his father does not want a feeding tube and the patient told me that as well. I discussed Hospice with Sebastián and he would like me to call [facility]. Sebastián states he is unable to meet with Hospice today, but would like to see them tomorrow at 1PM. I called and spoke to Kimberlee and informed her of consult and family wishes to see tomorrow at 1. Clinical faxed to [facility]. CM will continue to follow and assist with discharge planning/needs. DCP- Discharge Planning Updated by [email or web address]: Jeanne Booth on 09/06/18 9:[address] No family present in the room. I will continue throughout the day to meet with the sons or contact via phone later today to discuss discharge planning again regarding Hospice. I have spoke with them before about Hospice and at the time they were not ready yet. CM will continue to follow and assist with discharge planning/needs. DCP- Discharge Planning Updated by [email or web address]: Jeanne Booth on 09/02/18 12:[address] CM met with sons to discuss discharge planning. Katie is asking if they have a higher level of care at [facility] for his parents. I informed them I would call and check to see if returning to [facility] can be an option. I also discussed group home care and hospice care with them. They are not considering hospice at this time, but are considering group home care placement. They would like their parents to stay together if possible. I discussed a referral agency "[facility]" and they would like me to contact them. I have called [facility] and they state at this time, the patient and his are at the lowest level of care. The person at [facility] states that if the is not longer a flight risk and is no longer combative, she could come back to [facility], but may need to have a private aide with her at all times until her is able to return. She states at this time, she would not recommend that they change to a different apartment because it would cause additional confusion for the . I spoke with Nohemi and referral given. Nohmei states she will have someone talk with them and arrange tours of facilities if needed. CM will continue to follow and assist with discharge planning/needs. DCP- Discharge Planning Updated by [email or web address]: Jeanne Leobardo on 08/31/18 9:[address] Spoke with patient's son (Sebastián) concerning discharge planning. He is uncertain if his father will be able to return to [facility]. He is thinking he will need rehab or skilled therapy. We discussed possible group home placement as well. I provided him with MUKUL form with facilities listed. He states he will start looking at other facilities for possible placement. CM will continue to follow and assist with discharge planning/needs. DCP- Discharge Planning Updated by [email or web address]: Noemy Vang on 08/26/18 12:[address] Patient Name: SARIAH DUNHAM Admission Status: ER Accout number: [id number] Admission Date: 08-26-2018 : 1930 Admission Diagnosis: Attending: DANELLE GALLOWAY Current LOS: 1 Anticipated DC Date: 08-29-2018 Planned Disposition: Assisted Living Primary Insurance: MEDICARE A & B Discharge Planning Comments: CM met with patient's son, Sebastián Dunham, to complete initial dc planning assessment. CM educated patient/son on the CM role and verbal consent given by Vitaliy to complete assessment. Patient lives at [facility] with who he is the primary cg for. His has Alzheimer's disease and requires 24/ supervision. At discharge patient plans to return to [facility] and Sebastián feels this is a safe discharge. He denied known discharge needs for the patient at this time. CM will continue to follow and will assist as needed with dc plans/needs. See below for more assessment information. Sawing And Assembly Supervisor: Noemy Vang RN, [facility] DCPIA - Discharge Planning Initial Assessment Updated by [email or web address]: Noemy Vang on 08/26/18 1:29 pm * Is the patient Alert and Oriented? Yes * How many steps to enter\\exit or inside your home? None * PCP Dr. Phelps * [facility] * Preadmission Environment Assisted Living * Facility Name [facility] * ADLs Partial Dependent * Partial ADLs (Assistance needed) Bathing Medication Management * Equipment Walker Wheelchair * List name and contact numbers for known caregivers / representatives who currently or will assist patient after discharge: Sebastián Dunham - [facility] - [phone] * Verbal permission to speak to the caregivers and representatives has been obtained from the patient. Yes * Community resources currently utilized None * Additional services required to return to the preadmission environment? No * Can the patient safely return to the preadmission environment? Yes * Has this patient been hospitalized within the prior 30 days at any hospital? No External Providers External Provider: [facility] Contact Date: Service Request Date: Service Type: Resolution: Reviewer: Comments: Last DP export: 09/06/18 9:08 Patient Name: SARIAH DUNHAM Page 24073 at 1504 All edits/amendments must be made on the electronic document DICTATION DATE: 09/06/181502 SERVICE CENTER MANAGER: HONORIO 09/06/181502 RPT#: [id number] DC DATE: STATUS: ADM IN [facility] [address] [place] [address] END OF REPORT
--- NOTE | ~2018-08-26 | MORECARE ---
CASE MANAGEMENT DISCHARGE SUMMARY PATIENT: SARIAH DUNHAM UNIT: [id number] ADM DATE: 08/26/18 AGE: 88 : [birth year] SEX: M ROOM/BED: D.2230 AUTHOR: MARQUISEDOC PHYSICIAN: REFERRING PHYSICIAN: DANELLE GALLOWAY MD DATE OF SERVICE: 08/26/18 Discharge Plan Patient Name: SARIAH DUNHAM Facility: [facility]:[place] : 1930 Planned Disposition: Assisted Living Anticipated Discharge Date: 08/29/18 Discharge Date: Expected LOS: 3 Initial Reviewer: [email or web address] Initial Review Date: 08/26/2018 Generated: 08/26/18 2:38 pm DCP- Discharge Planning Updated by [email or web address]: Noemy Vang on 08/26/18 12:[address] Patient Name: SARIAH DUNHAM Admission Status: ER Accout number: [id number] Admission Date: 08-26-2018 : 1930 Admission Diagnosis: Attending: DANELLE GALLOWAY Current LOS: 1 Anticipated DC Date: 08-29-2018 Planned Disposition: Assisted Living Primary Insurance: MEDICARE A & B Discharge Planning Comments: CM met with patient's son, Sebastián Dunham, to complete initial dc planning assessment. CM educated patient/son on the CM role and verbal consent given by Karlas to complete assessment. Patient lives at [facility] with who he is the primary cg for. His has Alzheimer's disease and requires 24/7 supervision. At discharge patient plans to return to [facility] and Sebastián feels this is a safe discharge. He denied known discharge needs for the patient at this time. CM will continue to follow and will assist as needed with dc plans/needs. See below for more assessment information. Net Applications Developer: Noemy Vang RN, [facility] DCPIA - Discharge Planning Initial Assessment Updated by [email or web address]: Noemy Vang on 08/26/18 1:29 pm * Is the patient Alert and Oriented? Yes * How many steps to enter\exit or inside your home? None * PCP Dr. Phelps * [facility]acy [facility] * Preadmission Environment Assisted Living * Facility Name [facility] * ADLs Partial Dependent * Partial ADLs (Assistance needed) Bathing Medication Management * Equipment Walker Wheelchair * List name and contact numbers for known caregivers / representatives who currently or will assist patient after discharge: Sebastián Dunham - son - [phone] * Verbal permission to speak to the caregivers and representatives has been obtained from the patient. Yes * Community resources currently utilized None * Additional services required to return to the preadmission environment? No * Can the patient safely return to the preadmission environment? Yes * Has this patient been hospitalized within the prior 30 days at any hospital? No Last DP export: 08/26/18 12:31 p Patient Name: SARIAH DUNHAM Page 49722 at 1338 All edits/amendments must be made on the electronic document DICTATION DATE: 08/26/181336 AUDIO/VIDEO ENGINEER: HONORIO 08/26/181336 RPT#: [id number] DC DATE: STATUS: ADM IN [facility] [address] [place] [address] END OF REPORT
--- NOTE | ~2018-08-26 | MORECARE ---
CASE MANAGEMENT DISCHARGE SUMMARY PATIENT: SARIAH DUNHAM UNIT: [id number] ADM DATE: 08/26/18 AGE: 88 : [birth year] SEX: M ROOM/BED: D.2227 AUTHOR: MARQUISE,DOC PHYSICIAN: REFERRING PHYSICIAN: DANELLE GONZALEZ MD DATE OF SERVICE: 09/09/18 Discharge Plan Patient Name: SARIAH DUNHAM Facility: [facility]:[place] : 1930 Planned Disposition: Assisted Living Anticipated Discharge Date: 08/29/18 Discharge Date: Expected LOS: 3 Initial Reviewer: [email or web address] Initial Review Date: 08/26/2018 Generated: 09/09/18 5:51 pm Comments DCP- Discharge Planning Updated by [email or web address]: Jeanne Booth on 09/09/18 3:[address] Discharge orders/summary/MAR faxed to [facility]. He will be discharged to [facility] in [place] via ambulance tonight. CM will continue to follow and assist with discharge planning/needs. DCP- Discharge Planning Updated by [email or web address]: Jeanne Booth on 09/09/18 2:[address] Approval for [facility]. Dr. Gonzalez states to call [facility] for discharge orders. Tameisha is not available. I called and spoke to Suzanne. She will put in discharge orders. Primary nurse, Indu, informed of discharge to [facility] via ambulance tonight. I called and spoke to son, Sebastián, he is aware and agrees with discharge tonight to [facility]. DCP- Discharge Planning Updated by [email or web address]: Jeanne Booth on 09/09/18 9:[address] Spoke with Clemencia with [facility], they will be calling patient's son today to set up a time to meet with him. CM will continue to follow and assist with discharge planning/needs. DCP- Discharge Planning Updated by [email or web address]: Jeanne Booth on 09/07/18 2:[address] Aldo from [facility] spoke with Sebastián (son) and Sebastián would like to meet with [facility] on Wednesday. CM will continue to follow and assist with discharge planning/needs. DCP- Discharge Planning Updated by [email or web address]: Jeanne Leobardo on 09/07/18 2:[address] Erika and Abel with [facility] has met with the family and patient. Erika states that he is not GIP appropriate. Sebastián (patient's son) would like me to call [facility] to see if he meets [facility] for their Hospice setting. I called and spoke to Aldo and he will call son and set up a time to meet. CM will continue to follow and assist with discharge planning/needs. DCP- Discharge Planning Updated by [email or web address]: Jeanne Leobardo on 09/06/18 2:[address] CM met with son, Sebastián, concerning discharge planning and hospice consideration. Sebastián states that his father does not want a feeding tube and the patient told me that as well. I discussed Hospice with Sebastián and he would like me to call [facility]. Sebastián states he is unable to meet with Hospice today, but would like to see them tomorrow at 1PM. I called and spoke to Kimberlee and informed her of consult and family wishes to see tomorrow at 1. Clinical faxed to [facility]. CM will continue to follow and assist with discharge planning/needs. DCP- Discharge Planning Updated by [email or web address]: Jeanne Leobardo on 09/06/18 9:[address] No family present in the room. I will continue throughout the day to meet with the sons or contact via phone later today to discuss discharge planning again regarding Hospice. I have spoke with them before about Hospice and at the time they were not ready yet. CM will continue to follow and assist with discharge planning/needs. DCP- Discharge Planning Updated by [email or web address]: Jeanne Leobardo on 09/02/18 12:[address] CM met with sons to discuss discharge planning. Katie is asking if they have a higher level of care at [facility] for his parents. I informed them I would call and check to see if returning to [facility] can be an option. I also discussed penitentiary care and hospice care with them. They are not considering hospice at this time, but are considering penitentiary care placement. They would like their parents to stay together if possible. I discussed a referral agency "[facility]" and they would like me to contact them. I have called [facility] and they state at this time, the patient and his are at the lowest level of care. The person at [facility] states that if the is not longer a flight risk and is no longer combative, she could come back to [facility], but may need to have a private aide with her at all times until her is able to return. She states at this time, she would not recommend that they change to a different apartment because it would cause additional confusion for the . I spoke with Nohemi and referral given. Nohemi states she will have someone talk with them and arrange tours of facilities if needed. CM will continue to follow and assist with discharge planning/needs. DCP- Discharge Planning Updated by [email or web address]: Jeanne Montoyaibeth on 08/31/18 9:[address] Spoke with patient's son (Sebastián) concerning discharge planning. He is uncertain if his father will be able to return to [facility]. He is thinking he will need rehab or skilled therapy. We discussed possible terminal computer operator placement as well. I provided him with MUKUL form with facilities listed. He states he will start looking at other facilities for possible placement. CM will continue to follow and assist with discharge planning/needs. DCP- Discharge Planning Updated by [email or web address]: Noemy Vang on 08/26/18 12:[address] Patient Name: SARIAH DUNHAM Admission Status: ER Accout number: [id number] Admission Date: 08-26-2018 : 1930 Admission Diagnosis: Attending: DANELLE GONZALEZ Current LOS: 1 Anticipated DC Date: 08-29-2018 Planned Disposition: Assisted Living Primary Insurance: MEDICARE A & B Discharge Planning Comments: CM met with patient's son, Sebastián Dunham, to complete initial dc planning assessment. CM educated patient/son on the CM role and verbal consent given by Vitaliy to complete assessment. Patient lives at [facility] with who he is the primary cg for. His has Alzheimer's disease and requires 24/7 supervision. At discharge patient plans to return to [facility] and Sebastián feels this is a safe discharge. He denied known discharge needs for the patient at this time. CM will continue to follow and will assist as needed with dc plans/needs. See below for more assessment information. Car And Yard Supervisor: Noemy Vang RN, [facility] DCPIA - Discharge Planning Initial Assessment Updated by [email or web address]: Noemy Vang on 08/26/18 1:29 pm * Is the patient Alert and Oriented? Yes * How many steps to enter\\exit or inside your home? None * PCP Dr. Phelps * Pharmacy [facility] * Preadmission Environment Assisted Living * Facility Name [facility] * ADLs Partial Dependent * Partial ADLs (Assistance needed) Bathing Medication Management * Equipment Walker Wheelchair * List name and contact numbers for known caregivers / representatives who currently or will assist patient after discharge: Sebastián Dunham - son - [phone] * Verbal permission to speak to the caregivers and representatives has been obtained from the patient. Yes * Community resources currently utilized None * Additional services required to return to the preadmission environment? No * Can the patient safely return to the preadmission environment? Yes * Has this patient been hospitalized within the prior 30 days at any hospital? No Coverage Notice Reviewer: [email or web address] Yovanny Booth Notice Issued Date-Time: 09/09/2018 15:50 Notice Type: IM Discharge Notice Notice Delivered To: Family Member Relationship to Patient: Son Rate Manager Name: Sebastián Dunham Delivery Method: HAND - Hand Delivered Sierra Days: Prior Verbal Notification: Recipient Understood Notice: Yes Recipient Signature: Yes Med Rec Note Co-signed by Attending: Coverage Notice Comment: IMM explained, voiced understanding, copy left at bedside, original placed in MR Last DP export: 09/09/18 2:54 Patient Name: SARIAH DUNHAM Page 81966 at 1651 All edits/amendments must be made on the electronic document DICTATION DATE: 09/09/18 165 BUNCH MAKER HAND: HONORIO 09/09/181649 RPT#: [id number] DC DATE: STATUS: ADM IN [facility] [address] [place] [address] END OF REPORT
--- NOTE | ~2018-08-26 | MORECARE ---
CASE MANAGEMENT DISCHARGE SUMMARY PATIENT: SARIAH DUNHAM UNIT: [id number] ADM DATE: 08/26/18 AGE: 88 : [birth year] SEX: M ROOM/BED: D.2230 AUTHOR: MARQUISEDOC PHYSICIAN: REFERRING PHYSICIAN: DANELLE GALLOWAY MD DATE OF SERVICE: 08/31/18 Discharge Plan Patient Name: SARIAH DUNHAM Facility: [facility]:[place] : 1930 Planned Disposition: Assisted Living Anticipated Discharge Date: 08/29/18 Discharge Date: Expected LOS: 3 Initial Reviewer: [email or web address] Initial Review Date: 08/26/2018 Generated: 08/31/18 11:37 am Comments DCP- Discharge Planning Updated by [email or web address]: Jeanne Booth on 08/31/18 9:[address] Spoke with patient's son (Sebastián) concerning discharge planning. He is uncertain if his father will be able to return to [facility]. He is thinking he will need rehab or skilled therapy. We discussed possible intermediate placement as well. I provided him with MUKUL form with facilities listed. He states he will start looking at other facilities for possible placement. CM will continue to follow and assist with discharge planning/needs. DCP- Discharge Planning Updated by [email or web address]: Noemy Vang on 08/26/18 12:[address] Patient Name: SARIAH DUNHAM Admission Status: ER Accout number: [id number] Admission Date: 08-26-2018 : 1930 Admission Diagnosis: Attending: DANELLE GALLOWAY Current LOS: 1 Anticipated DC Date: 08-29-2018 Planned Disposition: Assisted Living Primary Insurance: MEDICARE A & B Discharge Planning Comments: CM met with patient's son, Sebastián Dunham, to complete initial dc planning assessment. CM educated patient/son on the CM role and verbal consent given by Karlas to complete assessment. Patient lives at [facility] with who he is the primary cg for. His has Alzheimer's disease and requires 24/7 supervision. At discharge patient plans to return to [facility] and Sebastián feels this is a safe discharge. He denied known discharge needs for the patient at this time. CM will continue to follow and will assist as needed with dc plans/needs. See below for more assessment information. Surgical Resident: Noemy Vang RN, [facility] DCPIA - Discharge Planning Initial Assessment Updated by [email or web address]: Noemy Vang on 08/26/18 1:29 pm * Is the patient Alert and Oriented? Yes * How many steps to enter\exit or inside your home? None * PCP Dr. Phelps * Pharmacy [facility] * Preadmission Environment Assisted Living * Facility Name [facility] * ADLs Partial Dependent * Partial ADLs (Assistance needed) Bathing Medication Management * Equipment Walker Wheelchair * List name and contact numbers for known caregivers / representatives who currently or will assist patient after discharge: Sebastián Dunham - [facility] - [phone] * Verbal permission to speak to the caregivers and representatives has been obtained from the patient. Yes * Community resources currently utilized None * Additional services required to return to the preadmission environment? No * Can the patient safely return to the preadmission environment? Yes * Has this patient been hospitalized within the prior 30 days at any hospital? No Last DP export: 08/26/18 12:38 p Patient Name: SARIAH DUNHAM Page [id number] at 1037 All edits/amendments must be made on the electronic document DICTATION DATE: 08/31/18 103 MANAGER FILTER: HONORIO 08/31/18 103 RPT#: [id number] DC DATE: STATUS: ADM IN [facility] [address] [place] [address] END OF REPORT
--- NOTE | ~2018-08-26 | MORECARE ---
CASE MANAGEMENT DISCHARGE SUMMARY PATIENT: SARIAH DUNHAM UNIT: [id number] ADM DATE: 08/26/18 AGE: 88 : [birth year] SEX: M ROOM/BED: D.2227 AUTHOR: MARQUISE,DOC PHYSICIAN: REFERRING PHYSICIAN: DANELLE GALLOWAY MD DATE OF SERVICE: 09/06/18 Discharge Plan Patient Name: SARIAH DUNHAM Facility: [facility]:[place] : 1930 Planned Disposition: Assisted Living Anticipated Discharge Date: 08/29/18 Discharge Date: Expected LOS: 3 Initial Reviewer: [email or web address] Initial Review Date: 08/26/2018 Generated: 09/06/18 11:08 am Comments DCP- Discharge Planning Updated by [email or web address]: Jeanne Booth on 09/06/18 9:[address] No family present in the room. I will continue throughout the day to meet with the sons or contact via phone later today to discuss discharge planning again regarding Hospice. I have spoke with them before about Hospice and at the time they were not ready yet. CM will continue to follow and assist with discharge planning/needs. DCP- Discharge Planning Updated by [id number]: Jeanne Booth on 09/02/18 12:[address] CM met with sons to discuss discharge planning. Katie is asking if they have a higher level of care at [facility] for his parents. I informed them I would call and check to see if returning to [facility] can be an option. I also discussed mcc care and hospice care with them. They are not considering hospice at this time, but are considering mcc care placement. They would like their parents to stay together if possible. I discussed a referral agency "[facility]" and they would like me to contact them. I have called [facility] and they state at this time, the patient and his are at the lowest level of care. The person at [facility] states that if the is not longer a flight risk and is no longer combative, she could come back to [facility], but may need to have a private aide with her at all times until her is able to return. She states at this time, she would not recommend that they change to a different apartment because it would cause additional confusion for the . I spoke with Nohemi and referral given. Nohemi states she will have someone talk with them and arrange tours of facilities if needed. CM will continue to follow and assist with discharge planning/needs. DCP- Discharge Planning Updated by [id number]: Jeanne Booth on 08/31/18 9:[address] Spoke with patient's son (Sebastián) concerning discharge planning. He is uncertain if his father will be able to return to [facility]. He is thinking he will need rehab or skilled therapy. We discussed possible terminal superintendent placement as well. I provided him with MUKUL form with facilities listed. He states he will start looking at other facilities for possible placement. CM will continue to follow and assist with discharge planning/needs. DCP- Discharge Planning Updated by [email or web address]: Noemy Vang on 08/26/18 12:[address] Patient Name: SARIAH DUNHAM Admission Status: ER Accout number: [id number] Admission Date: 08-26-2018 : 1930 Admission Diagnosis: Attending: DANELLE GALLOWAY Current LOS: 1 Anticipated DC Date: 08-29-2018 Planned Disposition: Assisted Living Primary Insurance: MEDICARE A & B Discharge Planning Comments: CM met with patient's son, Sebastián Dunham, to complete initial dc planning assessment. CM educated patient/son on the CM role and verbal consent given by Vitaliy to complete assessment. Patient lives at [facility] with who he is the primary cg for. His has Alzheimer's disease and requires 24/7 supervision. At discharge patient plans to return to [facility] and Sebastián feels this is a safe discharge. He denied known discharge needs for the patient at this time. CM will continue to follow and will assist as needed with dc plans/needs. See below for more assessment information. Post Office Markup Clerk: Noemy Vang RN, [facility] DCPIA - Discharge Planning Initial Assessment Updated by [email or web address]: Noemy Vang on 08/26/18 1:29 pm * Is the patient Alert and Oriented? Yes * How many steps to enter\\exit or inside your home? None * PCP Dr. Phelps * [facility]acy [facility] * Preadmission Environment Assisted Living * Facility Name [facility] * ADLs Partial Dependent * Partial ADLs (Assistance needed) Bathing Medication Management * Equipment Walker Wheelchair * List name and contact numbers for known caregivers / representatives who currently or will assist patient after discharge: Sebastián Dunham - [facility] - [phone] * Verbal permission to speak to the caregivers and representatives has been obtained from the patient. Yes * Community resources currently utilized None * Additional services required to return to the preadmission environment? No * Can the patient safely return to the preadmission environment? Yes * Has this patient been hospitalized within the prior 30 days at any hospital? No Last DP export: 09/02/18 12:58 Patient Name: SARIAH DUNHAM Page [id number] at 1008 All edits/amendments must be made on the electronic document DICTATION DATE: 09/06/18 1007 CAR REPAIR SUPERVISOR: HONORIO 09/06/18 1007 RPT#: [id number] DC DATE: STATUS: ADM IN [facility] [address] [place] [address] END OF REPORT
--- NOTE | ~2018-08-26 | MORECARE ---
CASE MANAGEMENT DISCHARGE SUMMARY PATIENT: SARIAH DUNHAM UNIT: [id number] ADM DATE: 08/26/18 AGE: 88 : [birth year] SEX: M ROOM/BED: D.2227 AUTHOR: MARQUISE,DOC PHYSICIAN: REFERRING PHYSICIAN: DANELLE GONZALEZ MD DATE OF SERVICE: 09/12/18 Discharge Plan Patient Name: SARIAH DUNHAM Facility: [facility]:[place] : 1930 Planned Disposition: Assisted Living Anticipated Discharge Date: 08/29/18 Discharge Date: 09/09/2018 Expected LOS: 3 Initial Reviewer: [email or web address] Initial Review Date: 08/26/2018 Generated: 09/12/18 11:13 am Comments DCP- Discharge Planning Updated by [email or web address]: Jeanne Booth on 09/09/18 3:[address] Discharge orders/summary/MAR faxed to [facility]. He will be discharged to [facility] at [facility] in [place] via ambulance tonight. CM will continue to follow and assist with discharge planning/needs. DCP- Discharge Planning Updated by [email or web address]: Jeanne Booth on 09/09/18 2:[address] Approval for [facility]. Dr. Gonzalez states to call [facility] for discharge orders. Tameisha is not available. I called and spoke to Suzanne. She will put in discharge orders. Primary nurse, Indu, informed of discharge to [facility] via ambulance tonight. I called and spoke to son, Sebastián, he is aware and agrees with discharge tonight to [facility]. DCP- Discharge Planning Updated by [email or web address]: Jeanne Booth on 09/09/18 9:[address] Spoke with Clemencia with [facility], they will be calling patient's son today to set up a time to meet with him. CM will continue to follow and assist with discharge planning/needs. DCP- Discharge Planning Updated by [id number]: Jeanne Booth on 09/07/18 2:[address] Aldo from [facility] spoke with Sebastián (son) and Sebastián would like to meet with [facility] on Wednesday. CM will continue to follow and assist with discharge planning/needs. DCP- Discharge Planning Updated by [email or web address]: Jeanne Leobardo on 09/07/18 2:[address] Erika and Abel with [facility] has met with the family and patient. Erika states that he is not GIP appropriate. Sebastián (patient's son) would like me to call [facility] to see if he meets GIP for their Hospice setting. I called and spoke to Aldo and he will call son and set up a time to meet. CM will continue to follow and assist with discharge planning/needs. DCP- Discharge Planning Updated by [email or web address]: Jeanne Leobardo on 09/06/18 2:[address] CM met with son, Sebastián, concerning discharge planning and hospice consideration. Sebastián states that his father does not want a feeding tube and the patient told me that as well. I discussed Hospice with Sebastián and he would like me to call [facility]. Sebastián states he is unable to meet with Hospice today, but would like to see them tomorrow at 1PM. I called and spoke to Kimberlee and informed her of consult and family wishes to see tomorrow at 1. Clinical faxed to [facility]. CM will continue to follow and assist with discharge planning/needs. DCP- Discharge Planning Updated by [email or web address]: Jeanne Leobardo on 09/06/18 9:[address] No family present in the room. I will continue throughout the day to meet with the sons or contact via phone later today to discuss discharge planning again regarding Hospice. I have spoke with them before about Hospice and at the time they were not ready yet. CM will continue to follow and assist with discharge planning/needs. DCP- Discharge Planning Updated by [email or web address]: Jeanne Leobardo on 09/02/18 12:[address] CM met with sons to discuss discharge planning. Katie is asking if they have a higher level of care at [facility] for his parents. I informed them I would call and check to see if returning to [facility] can be an option. I also discussed jail care and hospice care with them. They are not considering hospice at this time, but are considering emt intermediate care placement. They would like their parents to stay together if possible. I discussed a referral agency "[facility]" and they would like me to contact them. I have called [facility] and they state at this time, the patient and his are at the lowest level of care. The person at [facility] states that if the is not longer a flight risk and is no longer combative, she could come back to [facility], but may need to have a private aide with her at all times until her is able to return. She states at this time, she would not recommend that they change to a different apartment because it would cause additional confusion for the . I spoke with Nohemi and referral given. Nohemi states she will have someone talk with them and arrange tours of facilities if needed. CM will continue to follow and assist with discharge planning/needs. DCP- Discharge Planning Updated by [id number]: Jeanne Booth on 08/31/18 9:[address] Spoke with patient's son (Sebastián) concerning discharge planning. He is uncertain if his father will be able to return to [facility]. He is thinking he will need rehab or skilled therapy. We discussed possible jail placement as well. I provided him with MUKUL form with facilities listed. He states he will start looking at other facilities for possible placement. CM will continue to follow and assist with discharge planning/needs. DCP- Discharge Planning Updated by [email or web address]: Noemy Vang on 08/26/18 12:[address] Patient Name: SARIAH UDNHAM Admission Status: ER Accout number: [id number] Admission Date: 08-26-2018 : 1930 Admission Diagnosis: Attending: DANELLE GONZALEZ Current LOS: 1 Anticipated DC Date: 08-29-2018 Planned Disposition: Assisted Living Primary Insurance: MEDICARE A & B Discharge Planning Comments: CM met with patient's son, Sebastián Dunham, to complete initial dc planning assessment. CM educated patient/son on the CM role and verbal consent given by Vitaliy to complete assessment. Patient lives at [facility] with who he is the primary cg for. His has Alzheimer's disease and requires 24/7 supervision. At discharge patient plans to return to [facility] and Sebastián feels this is a safe discharge. He denied known discharge needs for the patient at this time. CM will continue to follow and will assist as needed with dc plans/needs. See below for more assessment information. Plating And Point Assembly Supervisor: Noemy Vang RN, [facility] DCPIA - Discharge Planning Initial Assessment Updated by [id number]: Noemy Vang on 08/26/18 1:29 pm * Is the patient Alert and Oriented? Yes * How many steps to enter\\exit or inside your home? None * PCP Dr. Phelps * Pharmacy [facility] * Preadmission Environment Assisted Living * Facility Name [facility] * ADLs Partial Dependent * Partial ADLs (Assistance needed) Bathing Medication Management * Equipment Walker Wheelchair * List name and contact numbers for known caregivers / representatives who currently or will assist patient after discharge: Sebastián Dunham - son - [phone] * Verbal permission to speak to the caregivers and representatives has been obtained from the patient. Yes * Community resources currently utilized None * Additional services required to return to the preadmission environment? No * Can the patient safely return to the preadmission environment? Yes * Has this patient been hospitalized within the prior 30 days at any hospital? No Coverage Notice Reviewer: [email or web address] Yovanny Booth Notice Issued Date-Time: 09/09/2018 15:50 Notice Type: IM Discharge Notice Notice Delivered To: Family Member Relationship to Patient: Son Welt Insole Channeler Name: Sebastián Dunham Delivery Method: HAND - Hand Delivered Sierra Days: Prior Verbal Notification: Recipient Understood Notice: Yes Recipient Signature: Yes Med Rec Note Co-signed by Attending: Coverage Notice Comment: IMM explained, voiced understanding, copy left at bedside, original placed in MR Last DP export: 09/09/18 3:51 Patient Name: SARIAH DUNHAM Page [id number] at 1013 All edits/amendments must be made on the electronic document DICTATION DATE: 09/12/18 1012 HAND CLOTH EXAMINER: HONORIO 09/12/18 1012 RPT#: [id number] [place] DATE:09/09/18 STATUS: DIS IN [facility] [address] [place] [address] END OF REPORT
--- NOTE | ~2018-08-26 | MORECARE ---
CASE MANAGEMENT DISCHARGE SUMMARY PATIENT: SARIAH DUNHAM UNIT: [id number] ADM DATE: 08/26/18 AGE: 88 : [birth year] SEX: M ROOM/BED: D.2227 AUTHOR: MARQUISE,DOC PHYSICIAN: REFERRING PHYSICIAN: DANELLE GALLOWAY MD DATE OF SERVICE: 09/07/18 Discharge Plan Patient Name: SARIAH DUNHAM Facility: [facility]:[place] : 1930 Planned Disposition: Assisted Living Anticipated Discharge Date: 08/29/18 Discharge Date: Expected LOS: 3 Initial Reviewer: [email or web address] Initial Review Date: 08/26/2018 Generated: 09/07/18 4:31 pm Comments DCP- Discharge Planning Updated by [email or web address]: Jeanne Booth on 09/06/18 2:[address] CM met with son, Sebastián, concerning discharge planning and hospice consideration. Sebastián states that his father does not want a feeding tube and the patient told me that as well. I discussed Hospice with Sebastián and he would like me to call [facility]. Sebastián states he is unable to meet with Hospice today, but would like to see them tomorrow at 1PM. I called and spoke to Kimberlee and informed her of consult and family wishes to see tomorrow at 1. Clinical faxed to [facility]. CM will continue to follow and assist with discharge planning/needs. DCP- Discharge Planning Updated by [email or web address]: Jeanne Booth on 09/06/18 9:[address] No family present in the room. I will continue throughout the day to meet with the sons or contact via phone later today to discuss discharge planning again regarding Hospice. I have spoke with them before about Hospice and at the time they were not ready yet. CM will continue to follow and assist with discharge planning/needs. DCP- Discharge Planning Updated by [id number]: Jeanne Booth on 09/02/18 12:[address] CM met with sons to discuss discharge planning. Katie is asking if they have a higher level of care at [facility] for his parents. I informed them I would call and check to see if returning to [facility] can be an option. I also discussed penitentiary care and hospice care with them. They are not considering hospice at this time, but are considering penitentiary care placement. They would like their parents to stay together if possible. I discussed a referral agency "[facility]" and they would like me to contact them. I have called [facility] and they state at this time, the patient and his are at the lowest level of care. The person at [facility] states that if the is not longer a flight risk and is no longer combative, she could come back to [facility], but may need to have a private aide with her at all times until her is able to return. She states at this time, she would not recommend that they change to a different apartment because it would cause additional confusion for the . I spoke with Nohemi and referral given. Nohemi states she will have someone talk with them and arrange tours of facilities if needed. CM will continue to follow and assist with discharge planning/needs. DCP- Discharge Planning Updated by [email or web address]: Jeanne Leobardo on 08/31/18 9:[address] Spoke with patient's son (Sebastián) concerning discharge planning. He is uncertain if his father will be able to return to [facility]. He is thinking he will need rehab or skilled therapy. We discussed possible penitentiary placement as well. I provided him with MUKUL form with facilities listed. He states he will start looking at other facilities for possible placement. CM will continue to follow and assist with discharge planning/needs. DCP- Discharge Planning Updated by [id number]: Noemy Vang on 08/26/18 12:[address] Patient Name: SARIAH DUNHAM Admission Status: ER Accout number: [id number] Admission Date: 08-26-2018 : 1930 Admission Diagnosis: Attending: DANELLE GALLOWAY Current LOS: 1 Anticipated DC Date: 08-29-2018 Planned Disposition: Assisted Living Primary Insurance: MEDICARE A & B Discharge Planning Comments: CM met with patient's son, Sebastián Dunham, to complete initial dc planning assessment. CM educated patient/son on the CM role and verbal consent given by Vitaliy to complete assessment. Patient lives at [facility] with who he is the primary cg for. His has Alzheimer's disease and requires 24/ supervision. At discharge patient plans to return to [facility] and Sebastián feels this is a safe discharge. He denied known discharge needs for the patient at this time. CM will continue to follow and will assist as needed with dc plans/needs. See below for more assessment information. Trust Administrator: Noemy Vang RN, [facility] DCPIA - Discharge Planning Initial Assessment Updated by [email or web address]: Noemy Vang on 08/26/18 1:29 pm * Is the patient Alert and Oriented? Yes * How many steps to enter\\exit or inside your home? None * PCP Dr. Phelps * [facility] * Preadmission Environment Assisted Living * Facility Name [facility] * ADLs Partial Dependent * Partial ADLs (Assistance needed) Bathing Medication Management * Equipment Walker Wheelchair * List name and contact numbers for known caregivers / representatives who currently or will assist patient after discharge: Sebastián Dunham - [facility] - [phone] * Verbal permission to speak to the caregivers and representatives has been obtained from the patient. Yes * Community resources currently utilized None * Additional services required to return to the preadmission environment? No * Can the patient safely return to the preadmission environment? Yes * Has this patient been hospitalized within the prior 30 days at any hospital? No External Providers External Provider: [facility] *(provides inpt [facility] Next Contact Date: Service Request Date: Service Type: Resolution: Reviewer: Comments: Last DP export: 09/06/18 2:04 Patient Name: SARIAH DUNHAM Page 47314 at 1531 All edits/amendments must be made on the electronic document DICTATION DATE: 09/07/18 153 MANAGER MINING: HONORIO 09/07/18 153 RPT#: [id number] DC DATE: STATUS: ADM IN [facility] [address] [place] [address] END OF REPORT
--- NOTE | ~2018-08-26 | MORECARE ---
CASE MANAGEMENT DISCHARGE SUMMARY PATIENT: SARIAH DUNHAM UNIT: [id number] ADM DATE: 08/26/18 AGE: 88 : [birth year] SEX: M ROOM/BED: D.2230 AUTHOR: WHIT CAMARILLO PHYSICIAN: REFERRING PHYSICIAN: DANELLE GALLOWAY MD DATE OF SERVICE: 08/26/18 Discharge Plan Patient Name: SARIAH DUNHAM [facility] [facility] 1930 Planned Disposition: Assisted Living Anticipated Discharge Date: 08/29/18 Discharge Date: Expected LOS: 3 Initial Reviewer: [email or web address] Initial Review Date: 08/26/2018 Generated: 08/26/18 2:31 pm DCPIA - Discharge Planning Initial Assessment Updated by [email or web address]: Noemy Vang on 08/26/18 1:29 pm * Is the patient Alert and Oriented? Yes * How many steps to enter\exit or inside your home? None * PCP Dr. Phelps * Pharmacy [facility] * Preadmission Environment Assisted Living * Facility Name [facility] * ADLs Partial Dependent * Partial ADLs (Assistance needed) Bathing Medication Management * Equipment Walker Wheelchair * List name and contact numbers for known caregivers / representatives who currently or will assist patient after discharge: Sebastián Dunham [facility] - [phone] * Verbal permission to speak to the caregivers and representatives has been obtained from the patient. Yes * Community resources currently utilized None * Additional services required to return to the preadmission environment? No * Can the patient safely return to the preadmission environment? Yes * Has this patient been hospitalized within the prior 30 days at any hospital? No Patient Name: SARIAH DUNHAM Page [id number] at 1331 All edits/amendments must be made on the electronic document DICTATION DATE: 08/26/18 1330 RADIO BOARD OPERATOR ANNOUNCER: HONORIO 08/26/18 1330 RPT#: [id number] DC DATE: STATUS: ADM IN [facility] [address] [place] [address] END OF REPORT
--- NOTE | ~2018-08-26 | MORECARE ---
CASE MANAGEMENT DISCHARGE SUMMARY PATIENT: SARIAH DUNHAM UNIT: [id number] ADM DATE: 08/26/18 AGE: 88 : [birth year] SEX: M ROOM/BED: D.2230 AUTHOR: WHIT CAMARILLO PHYSICIAN: REFERRING PHYSICIAN: DANELLE GALLOWAY MD DATE OF SERVICE: 09/02/18 Discharge Plan Patient Name: SARIAH DUNHAM Facility: [facility]:[place] : 1930 Planned Disposition: Assisted Living Anticipated Discharge Date: 08/29/18 Discharge Date: Expected LOS: 3 Initial Reviewer: [email or web address] Initial Review Date: 08/26/2018 Generated: 09/02/18 2:58 pm Comments DCP- Discharge Planning Updated by [email or web address]: Jeanne Booth on 09/02/18 12:[address] CM met with sons to discuss discharge planning. Katie is asking if they have a higher level of care at [facility] for his parents. I informed them I would call and check to see if returning to [facility] can be an option. I also discussed half-way care and hospice care with them. They are not considering hospice at this time, but are considering long term care social worker care placement. They would like their parents to stay together if possible. I discussed a referral agency "[facility]" and they would like me to contact them. I have called [facility] and they state at this time, the patient and his are at the lowest level of care. The person at [facility] states that if the is not longer a flight risk and is no longer combative, she could come back to [facility], but may need to have a private aide with her at all times until her is able to return. She states at this time, she would not recommend that they change to a different apartment because it would cause additional confusion for the . I spoke with Nohemi and referral given. Nohemi states she will have someone talk with them and arrange tours of facilities if needed. CM will continue to follow and assist with discharge planning/needs. DCP- Discharge Planning Updated by [email or web address]: Jeanne Booth on 08/31/18 9:[address] Spoke with patient's son (Sebastián) concerning discharge planning. He is uncertain if his father will be able to return to [facility]. He is thinking he will need rehab or skilled therapy. We discussed possible half-way placement as well. I provided him with MUKUL form with facilities listed. He states he will start looking at other facilities for possible placement. CM will continue to follow and assist with discharge planning/needs. DCP- Discharge Planning Updated by [email or web address]: Noemy Vang on 08/26/18 12:[address] Patient Name: SARIAH DUNHAM Admission Status: ER Accout number: [id number] Admission Date: 08-26-2018 : 1930 Admission Diagnosis: Attending: DANELLE GALLOWAY Current LOS: 1 Anticipated DC Date: 08-29-2018 Planned Disposition: Assisted Living Primary Insurance: MEDICARE A & B Discharge Planning Comments: CM met with patient's son, Sebastián Dunham, to complete initial dc planning assessment. CM educated patient/son on the CM role and verbal consent given by Karlas to complete assessment. Patient lives at [facility] with who he is the primary cg for. His has Alzheimer's disease and requires 10/05 supervision. At discharge patient plans to return to [facility] and Sebastián feels this is a safe discharge. He denied known discharge needs for the patient at this time. CM will continue to follow and will assist as needed with dc plans/needs. See below for more assessment information. Rehabilitation Services Aide: Noemy Vang RN, [facility] DCPIA - Discharge Planning Initial Assessment Updated by [email or web address]: Noemy Vang on 08/26/18 1:29 pm * Is the patient Alert and Oriented? Yes * How many steps to enter\\exit or inside your home? None * PCP Dr. [facility] * [facility] * Preadmission Environment Assisted Living * Facility Name [facility] * ADLs Partial Dependent * Partial ADLs (Assistance needed) Bathing Medication Management * Equipment Walker Wheelchair * List name and contact numbers for known caregivers / representatives who currently or will assist patient after discharge: Sebastián Dunham - son - [phone] * Verbal permission to speak to the caregivers and representatives has been obtained from the patient. Yes * Community resources currently utilized None * Additional services required to return to the preadmission environment? No * Can the patient safely return to the preadmission environment? Yes * Has this patient been hospitalized within the prior 30 days at any hospital? No Last DP export: 08/31/18 9:37 Patient Name: SARIAH DUNHAM Page 94494 at 1358 All edits/amendments must be made on the electronic document DICTATION DATE: 09/02/181357 FIRE RANGER: HONORIO 09/02/18 1358 RPT#: [id number] DC DATE: STATUS: ADM IN [facility] [address] [place] [address] END OF REPORT
--- NOTE | ~2018-08-26 | MORECARE ---
CASE MANAGEMENT DISCHARGE SUMMARY PATIENT: SARIAH DUNHAM UNIT: [id number] ADM DATE: 08/26/18 AGE: 88 : [birth year] SEX: M ROOM/BED: D.2227 AUTHOR: MARQUISE,DOC PHYSICIAN: REFERRING PHYSICIAN: DANELLE GALLOWAY MD DATE OF SERVICE: 09/07/18 Discharge Plan Patient Name: SARIAH DUNHAM Facility: [facility]:[place] : 1930 Planned Disposition: Assisted Living Anticipated Discharge Date: 08/29/18 Discharge Date: Expected LOS: 3 Initial Reviewer: [email or web address] Initial Review Date: 08/26/2018 Generated: 09/07/18 4:49 pm Comments DCP- Discharge Planning Updated by [email or web address]: Jeanne Booth on 09/07/18 2:[address] Aldo from [facility] spoke with Sebastián (son) and Sebastián would like to meet with [facility] on Wednesday. CM will continue to follow and assist with discharge planning/needs. DCP- Discharge Planning Updated by [email or web address]: Jeanne Booth on 09/07/18 2:[address] Erika and Abel with [facility] has met with the family and patient. Erika states that he is not GIP appropriate. Sebastián (patient's son) would like me to call [facility] to see if he meets GIP for their Hospice setting. I called and spoke to Aldo and he will call son and set up a time to meet. CM will continue to follow and assist with discharge planning/needs. DCP- Discharge Planning Updated by [email or web address]: Jeanne Booth on 09/06/18 2:[address] CM met with son, Sebastián, concerning discharge planning and hospice consideration. Sebastián states that his father does not want a feeding tube and the patient told me that as well. I discussed Hospice with Sebastián and he would like me to call [facility]. Sebastián states he is unable to meet with Hospice today, but would like to see them tomorrow at 1PM. I called and spoke to Kimberlee and informed her of consult and family wishes to see tomorrow at 1. Clinical faxed to [facility]. CM will continue to follow and assist with discharge planning/needs. DCP- Discharge Planning Updated by [email or web address]: Jeanne Booth on 09/06/18 9:[address] No family present in the room. I will continue throughout the day to meet with the sons or contact via phone later today to discuss discharge planning again regarding Hospice. I have spoke with them before about Hospice and at the time they were not ready yet. CM will continue to follow and assist with discharge planning/needs. DCP- Discharge Planning Updated by [id number]: Jeanne Booth on 09/02/18 12:[address] CM met with sons to discuss discharge planning. Katie is asking if they have a higher level of care at [facility] for his parents. I informed them I would call and check to see if returning to [facility] can be an option. I also discussed manager intermediate care and hospice care with them. They are not considering hospice at this time, but are considering manager intermediate care placement. They would like their parents to stay together if possible. I discussed a referral agency "[facility]" and they would like me to contact them. I have called [facility] and they state at this time, the patient and his are at the lowest level of care. The person at [facility] states that if the is not longer a flight risk and is no longer combative, she could come back to [facility], but may need to have a private aide with her at all times until her is able to return. She states at this time, she would not recommend that they change to a different apartment because it would cause additional confusion for the . I spoke with Nohemi and referral given. Nohemi states she will have someone talk with them and arrange tours of facilities if needed. CM will continue to follow and assist with discharge planning/needs. DCP- Discharge Planning Updated by [email or web address]: Jeanne Booth on 08/31/18 9:[address] Spoke with patient's son (Sebastián) concerning discharge planning. He is uncertain if his father will be able to return to [facility]. He is thinking he will need rehab or skilled therapy. We discussed possible manager intermediate placement as well. I provided him with MUKUL form with facilities listed. He states he will start looking at other facilities for possible placement. CM will continue to follow and assist with discharge planning/needs. DCP- Discharge Planning Updated by [email or web address]: Noemy Vang on 08/26/18 12:[address] Patient Name: SARIAH DUNHAM Admission Status: ER Accout number: [id number] Admission Date: 08-26-2018 : 1930 Admission Diagnosis: Attending: DANELLE GALLOWAY Current LOS: 1 Anticipated DC Date: 08-29-2018 Planned Disposition: Assisted Living Primary Insurance: MEDICARE A & B Discharge Planning Comments: CM met with patient's son, Sebastián Dunham, to complete initial dc planning assessment. CM educated patient/son on the CM role and verbal consent given by Vitaliy to complete assessment. Patient lives at [facility] with who he is the primary cg for. His has Alzheimer's disease and requires / supervision. At discharge patient plans to return to [facility] and Sebastián feels this is a safe discharge. He denied known discharge needs for the patient at this time. CM will continue to follow and will assist as needed with dc plans/needs. See below for more assessment information. Complaint Investigations Officer: Noemy Vang RN, [facility] DCPIA - Discharge Planning Initial Assessment Updated by [email or web address]: Noemy Vang on 08/26/18 1:29 pm * Is the patient Alert and Oriented? Yes * How many steps to enter\\exit or inside your home? None * PCP [facility] * [facility] * Preadmission Environment Assisted Living * Facility Name [facility] * ADLs Partial Dependent * Partial ADLs (Assistance needed) Bathing Medication Management * Equipment Walker Wheelchair * List name and contact numbers for known caregivers / representatives who currently or will assist patient after discharge: Sebastián Dunham - rene - [phone] * Verbal permission to speak to the caregivers and representatives has been obtained from the patient. Yes * Community resources currently utilized None * Additional services required to return to the preadmission environment? No * Can the patient safely return to the preadmission environment? Yes * Has this patient been hospitalized within the prior 30 days at any hospital? No Last DP export: 09/07/18 2:41 Patient Name: SARIAH DUNHAM Page 60612 at 1548 All edits/amendments must be made on the electronic document DICTATION DATE: 09/07/181548 BANDING MACHINE OPERATOR: HONORIO 09/07/181548 RPT#: [id number] [place] DATE: STATUS: ADM IN [facility] [address] [place] [address] END OF REPORT
--- NOTE | ~2018-08-26 | HEMODYNAMI ---
PATIENT:SARIAH DUNHAM MEDICAL RECORD: [id number] : [birth year] LOCATION:[facility] D2301 ADMISSION DATE: 08/26/18 Generatedon:09/02/201816:41 Patient name: SARIAH DUNHAM Patient #: [id number] SSN: : Date of study: 09/02/2018 Page: Of Hemodynamic Procedure Report Patient Data Patient Demographics Procedure consent was obtained First Name: SARIAH Gender: Male Last Name: ROLY : 1930 [facility] Initial: SAMUEL Age: 88 year(s) Patient #: [id number] Race: Unknown Additional ID: [id number] Contact details [address]: [address] [place] [address] rd State: [place] City: [place] Zip code: [address] Admission Admission Data Admission Date: 08/26/2018 Admission Time: 11:50 Room #: D.2230 Procedure Procedure Types Cath Procedure Peripheral Cath Diagnostic Procedure Miscellaneous Procedure Description Procedure Date Procedure Date: 09/02/2018 Procedure Start Time: 15:35 Procedure Staff Name Function Kenny Clark MD Performing Physician Emile Vazquez RT Monitor Marilin Aparicio RN Nurse Procedure Data Cath Procedure Fluoroscopy Diagnostic fluoroscopy Total fluoroscopy Time: time: 11.1 min 11.1 min Diagnostic fluoroscopy Total fluoroscopy dose: 509 dose: 509 mGy mGy Contrast Material Contrast Material Type Amount (ml) Isovue 300 65 Entry Location Entry Primary Successful Side Size Upsize Upsize Entry Closure Succes sful Closure Location (Fr) 1 (Fr) 2 (Fr) Remarks Device Remarks Femoral Right Exoseal artery Diagnostic catheters Device Type Used For End Catheter Placement Merit 5Fr Mikaless catheter ([id number]) Merit ULTRA BOLUS FLUSH 5Fr 90CM catheter ([id number]) Procedure Medications Medication Administration Route Dosage Oxygen etCO2 Nasal cannula 4 l/min Lidocaine 1% added to field 20 Heparin Flush Bag added to field 3 (1000units/500ml NS) Hemodynamics Rest Heart Rate: 93 (bpm) Snapshots Pre Cath Intra NCS Post Cath Vital Signs Time Heart Resp SPO2 etCO2 NIBP Rhythm Pain Sedation Rate (ipm) (%) (mmHg) (mmHg) Status Level (bpm) 15:29:52 95 31 98 10.5 Measuring NSR 0 (11) 7(A) , No pain 15:30:47 97 17 94 12 85/46(57) NSR 0 (11) 7(A) , No pain 15:34:59 98 20 98 11.2 76/47(55) NSR 0 (11) 7(A) , No pain 15:39:07 94 22 98 15 74/48(56) NSR 0 (11) 7(A) , No pain 15:43:13 94 31 98 12 62/43(48) NSR 0 (11) 7(A) , No pain 15:47:15 92 25 99 17.3 65/43(50) NSR 0 (11) 7(A) , No pain 15:50:02 91 23 99 17.3 71/50(56) NSR 0 (11) 7(A) , No pain 15:54:06 91 27 99 10.5 69/47(55) NSR 0 (11) 7(A) , No pain 15:58:10 89 29 96 13.5 74/45(62) NSR 0 (11) 7(A) , No pain 16:02:16 90 27 98 13.5 73/44(56) NSR 0 (11) 7(A) , No pain 16:06:22 91 29 96 13.5 71/44(56) NSR 0 (11) 7(A) , No pain 16:10:54 92 22 97 18 106/53(86) NSR 0 (11) 7(A) , No pain 16:14:58 94 27 96 15.8 109/56(89) NSR 0 (11) 7(A) , No pain 16:18:55 91 28 98 14.3 100/57(76) NSR 0 (11) 7(A) , No pain 16:22:53 94 24 7.5 98/61(82) NSR 0 (11) 7(A) , No pain 16:26:57 95 17 97 21.8 80/46(69) NSR 0 (11) 7(A) , No pain 16:31:33 97 28 10.5 110/58(84) NSR 0 (11) 7(A) , No pain 16:36:32 95 26 12 Measuring NSR 0 (11) 7(A) , No pain 16:37:54 95 26 15.8 Time NSR 0 (11) 7(A) Exceeded , No pain Medications Time Medication Route Dose Verified Delivered Reason Notes Effe ctiveness by by 9:04:47 Oxygen etCO2 4 Kenny Robles Per Nasal l/min Amber Aparicio RN protocol cannula 16:05:02 Lidocaine 1% added 20ml Kenny Cox used for to vial Amber Clark procedure field MD PHILLIPS 16:05:28 Heparin Flush added 3 Kenny Cox used for Bag to BAGS Amber Clark procedure (1000units/500ml field MD PHILLIPS NS) Procedure Log Time Note 9:04:47 Oxygen 4 l/min etCO2 Nasal cannula was administered by Margaret Aparicio RN; Per protocol; 15:19:23 Emile Vazquez RT (R) (CV) sent for patient. Start room use. 15:19:40 Time tracking: Regular hours (M-F 7:00 - 5:00) 15:19:51 Patient received from Med/Surg to IR Alert and oriented. Tansferred to table in Supine position. 15:19:53 Correct patient and procedure confirmed by team. 15:19:55 Signed procedure consent form obtained from patient. 15:19:56 ECG and BP/O2 sat monitors applied to patient. 15:19:57 Full Disclosure recording started 15:20:00 Use device set IR Diagnostic 15:20:01 ACIST Syringe (31462) opened to sterile field. 15:20:01 ACIST Hand Control (37825) opened to sterile field. 15:20:02 ACIST Manifold (81147) opened to sterile field. 15:20:02 Bag Decanter (2001S) opened to sterile field. 15:20:02 Sterile Angiographic Pack opened to sterile field. 15:20:03 Tegaderm 4 x 4 (1626W) opened to sterile field. 15:20:12 - 15:20:17 H&P Date Dictated: 09/02/2018 Within 30 days and on chart.. 15:20:17 Pre-procedure instructions explained to patient. 15:20:18 Pre-op teaching completed and patient verbalized understanding. 15:20:20 Family in waiting room. 15:20:22 Patient NPO since Midnight. 15:20:27 Is the patient allergic to Iodine/contrast media? No. 15:20:29 Is patient on blood thinner?No 15:20:32 Patient diabetic? No. 15:20:52 - 15:20:53 ----Pre-sedation anethsthesia assessment.---- 15:20:56 Previous problem with sedation/anesthesia? No ? 15:20:58 Snore? No 15:21:00 Sleep apnea? No 15:21:04 Deviated septum? No 15:21:05 Opens mouth fully? Yes 15:21:07 Sticks out tongue? Yes 15:21:09 Airway obstruction? No ? 15:21:11 - 15:21:12 Dentures? No ? 15:21:13 - 15:26:54 Pre procedure: right dorsailis pedis pulse Doppler 15:27:05 IV patent on arrival in right forearm with 0.9% NaCl at [facility]. 15:27:08 Sharps counted by scrub and verified by R.N. 15:27:14 Right groin area was prepped with chlora-prep and draped in sterile fashion 15:28:02 Vital chart was started 15:34:36 Baseline sample Acquired. 15:34:44 Physician arrived 15:34:46 --------ALL STOP TIME OUT------ 15:34:52 Final Timeout: patient, procedure, and site verified with staff and physician. All members of the team are in agreement. 15:34:56 Right groin site verified by team. 15:35:12 Sedation plan: IV Moderate Sedation Medication:Versed, Fentanyl 15:35:27 Procedure started. 15:35:31 Local anesthetic to right femoral artery with Lidocaine 1% by Kenny Clark MD.INITIAL ACCESS ONLY 15:35:46 DOC .035 wire (N71367) opened to sterile field. 15:35:46 SHEATH 5FR [place] (VMX750) opened to sterile field. 15:35:47 Micropuncture VSI 4FR kit opened to sterile field. 15:35:50 A Merit 5Fr Mikaless catheter (448556) was advanced over the wire and used for . 15:35:53 A Movigo ULTRA BOLUS FLUSH 5Fr 90CM catheter ([id number]) was advanced over the wire and used for . 15:35:55 Access obtained with 4Fr micropunture. 15:36:05 A sheath was inserted into the Right Femoral artery 15:37:32 TUBING Contrast Injection High Pressure (KNH487R) opened to sterile field. 15:44:46 TRANSEND STEERABLE wire ([id number]) opened to sterile field. 15:44:47 RENEGADE HI-LAURA microcatheter ([id number]) opened to sterile field. 15:45:03 TORQUE DEVICE PLASTIC .038 ( TD01) opened to sterile field. 15:46:02 GLIDE WIRE ANGLE 180cm (WO7962) opened to sterile field. 15:58:14 COIL HILAL 2.0-2 (J23667) opened to sterile field. 16:01:49 COIL HILAL 2.0-2 (C31309) opened to sterile field. 16:04:58 COIL Micronester 3mm (T09416) opened to sterile field. 16:05:02 Lidocaine 1% 20ml vial added to field was administered by Kenny matta MD; used for procedure; 16:05:28 Heparin Flush Bag (1000units/500ml NS) 3 BAGS added to field was administered by Kenny Clark MD; used for procedure; 16:06:26 COIL Positioning Wire ([id number]) opened to sterile field. 16:06:26 COIL Micronester 3mm (B27699) opened to sterile field. 16:07:43 COIL Micronester 3mm (K08819) opened to sterile field. 16:11:26 COIL Micronester 3mm (W36892) opened to sterile field. 16:14:16 COIL Micronester 3mm (Z51623) opened to sterile field. 16:16:15 EXOSEAL 5Fr (EX500) opened to sterile field. 16:16:25 Sheath removed intact; hemostasis achieved with Exoseal to the Right Femoral artery. 16:16:39 Procedure ended.(Physican Out) 16:19:48 Fluoroscopy time 11.10 minutes. 16:19:54 Fluoroscopy dose: 509 mGy 16:19:54 Flurop Dose total: 509 16:19:55 Sharps counted by scrub and verified by R.N. 16:19:58 Insertion/operative site no bleeding no hematoma. 16:20:04 Post-op/insertion site Right Femoral artery dressed using a 4 x 4 and Tegaderm. 16:20:12 Post right femoral artery:stable 16:20:19 Post Procedure Pulses reassessed and unchanged 16:20:24 Post procedure instruction explained to patient.Patient verbalizes understanding. 16:22:32 Procedure and supply charges have been captured, reviewed, submitted an d are correct. 16:32:10 Contrast amount:Isovue 300 65ml. 16:40:33 Report given to ICU. 16:40:37 Patient transfered to ICU with Bed. 16:41:04 Vital chart was stopped Device Usage Item Name Manufacture Quantity Catalog Number Hospital Part Current [facility] Lot# / Charge Number Stock Stock Serial# Code ACIST Syringe Acist 1 11247 418541 862527 469565 20 (42602) Nykaa ACIST Hand Acist 1 80512 451913 828604 087600 5 Control Medical (66866) Systems Inc ACIST Manifold Acist 1 66665 259970 576615 995246 5 (74649) Medical Systems Inc Bag Decanter Microtek 1 2001S 199937 51056 775599 5 (2001S) Medical Inc. Sterile Cardinal 1 [id number] 189031 290065 5 Angiographic Health Pack Tegaderm 4 x 4 3M 1 1626W 260802 560223 170262 5 (1626W) DOC .035 wire Cook Medical 1 I16905 124181 846790 5 (H77493) SHEATH 5FR Terumo 1 AEC868 968191 677105 465675 40 [place] (XRP243) Micropuncture VSI VASCULAR 1 7266V 332023 088160 5 VSI 4FR kit SOLUTIONS Merit 5Fr Merit 1 765014 916517 193183 [address] [facility] Medical catheter (971298) Merit ULTRA Merit 1 [id number] 591038 842879 5 BOLUS FLUSH Medical 5Fr 90CM catheter ([id number]) TUBING Merit 1 LSM968F 214836 063352 076316 5 Contrast Medical Injection High Pressure (MRD710D) TRANSEND [place] 1 [id number] 855217 587076 5 [id number] STEERABLE wire Scientific ([id number]) RENEGADE [place] 1 [id number] 764628 146916 5 [id number] HI-LAURA Scientific microcatheter ([id number]) TORQUE DEVICE [place] 1 TD01 616635 790776 877588 5 PLASTIC .038 ( Scientific TD01) GLIDE WIRE Terumo 1 EC7181 214662 140098 762776 5 ANGLE 180cm (GO5166) COIL HILAL Cook Medical 2 E21398 673112 980802 5 2230282 2.0-2 (X90079) 4804533 COIL Cook Medical 5 C14937 480647 562420 1 [id number] Micronester 2367178 3mm (E69956) 6993281 1348953 0023866 COIL [place] 1 [id number] 797822 244494 334939 5 Positioning Scientific Wire ([id number]) EXOSEAL 5Fr Cardinal 1 EX500 566813 865798 607805 10 [id number] (EX500) Health Signature Audit [place] Stage Time Signature Unsigned Intra-Procedure 09/02/2018 Emile 4:41:01 PM George MARIE (R) (CV) Signatures Monitor : Emile Signature : George RT Date : Time : [place] [id number]
--- NOTE | ~2018-08-26 | MORECARE ---
CASE MANAGEMENT DISCHARGE SUMMARY PATIENT: SARIAH DUNHAM UNIT: [id number] ADM DATE: 08/26/18 AGE: 88 : [birth year] SEX: M ROOM/BED: D.2227 AUTHOR: MARQUISE,DOC PHYSICIAN: REFERRING PHYSICIAN: DANELLE GALLOWAY MD DATE OF SERVICE: 09/09/18 Discharge Plan Patient Name: SARIAH DUNHAM Facility: [facility]:[place] : 1930 Planned Disposition: Assisted Living Anticipated Discharge Date: 08/29/18 Discharge Date: Expected LOS: 3 Initial Reviewer: [email or web address] Initial Review Date: 08/26/2018 Generated: 09/09/18 11:52 am Comments DCP- Discharge Planning Updated by [email or web address]: Jeanne Booth on 09/09/18 9:[address] Spoke with Clmeencia with [facility], they will be calling patient's son today to set up a time to meet with him. CM will continue to follow and assist with discharge planning/needs. DCP- Discharge Planning Updated by [email or web address]: Jeanne Booth on 09/07/18 2:[address] Aldo from [facility] spoke with Sebastián (son) and Sebastián would like to meet with [facility] on Wednesday. CM will continue to follow and assist with discharge planning/needs. DCP- Discharge Planning Updated by [id number]: Jeanne Booth on 09/07/18 2:[address] Erika and Abel with [facility] has met with the family and patient. Erika states that he is not GIP appropriate. Sebastián (patient's son) would like me to call [facility] to see if he meets [facility] for their Hospice setting. I called and spoke to Aldo and he will call son and set up a time to meet. CM will continue to follow and assist with discharge planning/needs. DCP- Discharge Planning Updated by [email or web address]: Jeanne Booth on 09/06/18 2:[address] CM met with son, Sebastián, concerning discharge planning and hospice consideration. Sebastián states that his father does not want a feeding tube and the patient told me that as well. I discussed Hospice with Sebastián and he would like me to call [facility]. Sebastián states he is unable to meet with Hospice today, but would like to see them tomorrow at 1PM. I called and spoke to Kimberlee and informed her of consult and family wishes to see tomorrow at 1. Clinical faxed to [facility]. CM will continue to follow and assist with discharge planning/needs. DCP- Discharge Planning Updated by [email or web address]: Jeanne Leobardo on 09/06/18 9:[address] No family present in the room. I will continue throughout the day to meet with the sons or contact via phone later today to discuss discharge planning again regarding Hospice. I have spoke with them before about Hospice and at the time they were not ready yet. CM will continue to follow and assist with discharge planning/needs. DCP- Discharge Planning Updated by [email or web address]: Jeanne Leobardo on 09/02/18 12:[address] CM met with sons to discuss discharge planning. Katie is asking if they have a higher level of care at [facility] for his parents. I informed them I would call and check to see if returning to [facility] can be an option. I also discussed shelter care and hospice care with them. They are not considering hospice at this time, but are considering toolroom helper care placement. They would like their parents to stay together if possible. I discussed a referral agency "[facility]" and they would like me to contact them. I have called [facility] and they state at this time, the patient and his are at the lowest level of care. The person at [facility] states that if the is not longer a flight risk and is no longer combative, she could come back to [facility], but may need to have a private aide with her at all times until her is able to return. She states at this time, she would not recommend that they change to a different apartment because it would cause additional confusion for the . I spoke with Nohemi and referral given. Nohemi states she will have someone talk with them and arrange tours of facilities if needed. CM will continue to follow and assist with discharge planning/needs. DCP- Discharge Planning Updated by [email or web address]: Jeanne Leobardo on 08/31/18 9:[address] Spoke with patient's son (Sebastián) concerning discharge planning. He is uncertain if his father will be able to return to [facility]. He is thinking he will need rehab or skilled therapy. We discussed possible shelter placement as well. I provided him with MUKUL form with facilities listed. He states he will start looking at other facilities for possible placement. CM will continue to follow and assist with discharge planning/needs. DCP- Discharge Planning Updated by [id number]: Noemy Vang on 08/26/18 12:[address] Patient Name: SARIAH DUNHAM Admission Status: ER Accout number: [id number] Admission Date: 08-26-2018 : 1930 Admission Diagnosis: Attending: DANELLE GALLOWAY Current LOS: 1 Anticipated DC Date: 08-29-2018 Planned Disposition: Assisted Living Primary Insurance: MEDICARE A & B Discharge Planning Comments: CM met with patient's son, Sebastián Dunham, to complete initial dc planning assessment. CM educated patient/son on the CM role and verbal consent given by Karlas to complete assessment. Patient lives at [facility] with who he is the primary cg for. His has Alzheimer's disease and requires 10/05 supervision. At discharge patient plans to return to [facility] and Sebastián feels this is a safe discharge. He denied known discharge needs for the patient at this time. CM will continue to follow and will assist as needed with dc plans/needs. See below for more assessment information. Industrial Waste Inspector: Noemy Vang RN, [facility] DCPIA - Discharge Planning Initial Assessment Updated by [email or web address]: Noemy Vang on 08/26/18 1:29 pm * Is the patient Alert and Oriented? Yes * How many steps to enter\\exit or inside your home? None * PCP Dr. Phelps * [facility]acy [facility] * Preadmission Environment Assisted Living * Facility Name [facility] * ADLs Partial Dependent * Partial ADLs (Assistance needed) Bathing Medication Management * Equipment Walker Wheelchair * List name and contact numbers for known caregivers / representatives who currently or will assist patient after discharge: Sebastián Dunham - son - [phone] * Verbal permission to speak to the caregivers and representatives has been obtained from the patient. Yes * Community resources currently utilized None * Additional services required to return to the preadmission environment? No * Can the patient safely return to the preadmission environment? Yes * Has this patient been hospitalized within the prior 30 days at any hospital? No Last DP export: 09/07/18 2:49 Patient Name: SARIAH DUNHAM Page 92814 at 1052 All edits/amendments must be made on the electronic document DICTATION DATE: 09/09/18 105 MOVIE MACHINE OPERATOR: HONORIO 09/09/18 105 RPT#: [id number] DC DATE: STATUS: ADM IN [facility] [address] [place] [address] END OF REPORT
--- NOTE | ~2018-08-26 | MORECARE ---
CASE MANAGEMENT DISCHARGE SUMMARY PATIENT: SARIAH DUNHAM UNIT: [id number] ADM DATE: 08/26/18 AGE: 88 : [birth year] SEX: M ROOM/BED: D.2227 AUTHOR: MARQUISEDOC PHYSICIAN: REFERRING PHYSICIAN: DANELLE GALLOWAY MD DATE OF SERVICE: 09/07/18 Discharge Plan Patient Name: SARIAH DUNHAM Facility: [facility]:[place] : 1930 Planned Disposition: Assisted Living Anticipated Discharge Date: 08/29/18 Discharge Date: Expected LOS: 3 Initial Reviewer: [email or web address] Initial Review Date: 08/26/2018 Generated: 09/07/18 4:41 pm Comments DCP- Discharge Planning Updated by [email or web address]: Jeanne Booth on 09/07/18 2:[address] Erika and Abel with [facility] has met with the family and patient. Erika states that he is not GIP appropriate. Sebastián (patient's son) would like me to call [facility] to see if he meets [facility] for their Hospice setting. I called and spoke to Aldo and he will call son and set up a time to meet. CM will continue to follow and assist with discharge planning/needs. DCP- Discharge Planning Updated by [id number]: Jeanne Booth on 09/06/18 2:[address] CM met with son, Sebastián, concerning discharge planning and hospice consideration. Sebastián states that his father does not want a feeding tube and the patient told me that as well. I discussed Hospice with Sebastián and he would like me to call [facility]. Sebastián states he is unable to meet with Hospice today, but would like to see them tomorrow at 1PM. I called and spoke to Kimberlee and informed her of consult and family wishes to see tomorrow at 1. Clinical faxed to [facility]. CM will continue to follow and assist with discharge planning/needs. DCP- Discharge Planning Updated by [id number]: Jeanne Booth on 09/06/18 9:[address] No family present in the room. I will continue throughout the day to meet with the sons or contact via phone later today to discuss discharge planning again regarding Hospice. I have spoke with them before about Hospice and at the time they were not ready yet. CM will continue to follow and assist with discharge planning/needs. DCP- Discharge Planning Updated by [email or web address]: Jeanne Booth on 09/02/18 12:[address] CM met with sons to discuss discharge planning. Katie is asking if they have a higher level of care at [facility] for his parents. I informed them I would call and check to see if returning to [facility] can be an option. I also discussed [place] [facility] [place] care and hospice care with them. They are not considering hospice at this time, but are considering [place] [facility] [place] care placement. They would like their parents to stay together if possible. I discussed a referral agency "[facility]" and they would like me to contact them. I have called [facility] and they state at this time, the patient and his are at the lowest level of care. The person at [facility] states that if the is not longer a flight risk and is no longer combative, she could come back to [facility], but may need to have a private aide with her at all times until her is able to return. She states at this time, she would not recommend that they change to a different apartment because it would cause additional confusion for the . I spoke with Nohemi and referral given. Nohemi states she will have someone talk with them and arrange tours of facilities if needed. CM will continue to follow and assist with discharge planning/needs. DCP- Discharge Planning Updated by [id number]: Jeanne Booth on 08/31/18 9:[address] Spoke with patient's son (Sebastián) concerning discharge planning. He is uncertain if his father will be able to return to [facility]. He is thinking he will need rehab or skilled therapy. We discussed possible intermodal dispatcher placement as well. I provided him with MUKUL form with facilities listed. He states he will start looking at other facilities for possible placement. CM will continue to follow and assist with discharge planning/needs. DCP- Discharge Planning Updated by [email or web address]: Noemy Vang on 08/26/18 12:[address] Patient Name: SARIAH DUNHAM Admission Status: ER Accout number: [id number] Admission Date: 08-26-2018 : 1930 Admission Diagnosis: Attending: DANELLE GALLOWAY Current LOS: 1 Anticipated DC Date: 08-29-2018 Planned Disposition: Assisted Living Primary Insurance: MEDICARE A & B Discharge Planning Comments: CM met with patient's son, Sebastián Dunham, to complete initial dc planning assessment. CM educated patient/son on the CM role and verbal consent given by Vitaliy to complete assessment. Patient lives at [facility] with who he is the primary cg for. His has Alzheimer's disease and requires 24/ supervision. At discharge patient plans to return to [facility] and Sebastián feels this is a safe discharge. He denied known discharge needs for the patient at this time. CM will continue to follow and will assist as needed with dc plans/needs. See below for more assessment information. Supervisor Claims: Noemy Vang RN, [facility] DCPIA - Discharge Planning Initial Assessment Updated by [email or web address]: Noemy Vang on 08/26/18 1:29 pm * Is the patient Alert and Oriented? Yes * How many steps to enter\\exit or inside your home? None * PCP Dr. Phelps * Pharmacy [facility] * Preadmission Environment Assisted Living * Facility Name [facility] * ADLs Partial Dependent * Partial ADLs (Assistance needed) Bathing Medication Management * Equipment Walker Wheelchair * List name and contact numbers for known caregivers / representatives who currently or will assist patient after discharge: Sebastián Dunham - son - [phone] * Verbal permission to speak to the caregivers and representatives has been obtained from the patient. Yes * Community resources currently utilized None * Additional services required to return to the preadmission environment? No * Can the patient safely return to the preadmission environment? Yes * Has this patient been hospitalized within the prior 30 days at any hospital? No Last DP export: 09/07/18 2:31 Patient Name: SARIAH DUNHAM Page 15129 at 1541 All edits/amendments must be made on the electronic document DICTATION DATE: 09/07/181539 SIDE TRIMMER: HONORIO 09/07/181539 RPT#: [id number] DC DATE: STATUS: ADM IN [facility] [address] [place] [address] END OF REPORT
--- NOTE | ~2018-08-26 | MORECARE ---
CASE MANAGEMENT DISCHARGE SUMMARY PATIENT: SARIAH DUNHAM UNIT: [id number] ADM DATE: 08/26/18 AGE: 88 : [birth year] SEX: M ROOM/BED: D.2227 AUTHOR: MARQUISE,DOC PHYSICIAN: REFERRING PHYSICIAN: DANELLE GALLOWAY MD DATE OF SERVICE: 09/09/18 Discharge Plan Patient Name: SARIAH DNUHAM Facility: [facility]:[place] : 1930 Planned Disposition: Assisted Living Anticipated Discharge Date: 08/29/18 Discharge Date: Expected LOS: 3 Initial Reviewer: [email or web address] Initial Review Date: 08/26/2018 Generated: 09/09/18 4:46 pm Comments DCP- Discharge Planning Updated by [email or web address]: Jeanne Booth on 09/09/18 9:[address] Spoke with Clemencia with [facility], they will be calling patient's son today to set up a time to meet with him. CM will continue to follow and assist with discharge planning/needs. DCP- Discharge Planning Updated by [email or web address]: Jeanne Booth on 09/07/18 2:[address] Aldo from [facility] spoke with Sebastián (son) and Sebastián would like to meet with [facility] on Wednesday. CM will continue to follow and assist with discharge planning/needs. DCP- Discharge Planning Updated by [email or web address]: Jeanne Booth on 09/07/18 2:[address] Erika and Abel with [facility] has met with the family and patient. Erika states that he is not GIP appropriate. Sebastián (patient's son) would like me to call [facility] to see if he meets [facility] for their Hospice setting. I called and spoke to Aldo and he will call son and set up a time to meet. CM will continue to follow and assist with discharge planning/needs. DCP- Discharge Planning Updated by [email or web address]: Jeanne Booth on 09/06/18 2:[address] CM met with son, Sebastián, concerning discharge planning and hospice consideration. Sebastián states that his father does not want a feeding tube and the patient told me that as well. I discussed Hospice with Sebastián and he would like me to call [facility]. Sebastián states he is unable to meet with Hospice today, but would like to see them tomorrow at 1PM. I called and spoke to Kimberlee and informed her of consult and family wishes to see tomorrow at 1. Clinical faxed to [facility]. CM will continue to follow and assist with discharge planning/needs. DCP- Discharge Planning Updated by [id number]: Jeanne Leobardo on 09/06/18 9:[address] No family present in the room. I will continue throughout the day to meet with the sons or contact via phone later today to discuss discharge planning again regarding Hospice. I have spoke with them before about Hospice and at the time they were not ready yet. CM will continue to follow and assist with discharge planning/needs. DCP- Discharge Planning Updated by [id number]: Jeanne Leobardo on 09/02/18 12:[address] CM met with sons to discuss discharge planning. Katie is asking if they have a higher level of care at [facility] for his parents. I informed them I would call and check to see if returning to [facility] can be an option. I also discussed intermediate card tender care and hospice care with them. They are not considering hospice at this time, but are considering nursing home care placement. They would like their parents to stay together if possible. I discussed a referral agency "[facility]" and they would like me to contact them. I have called [facility] and they state at this time, the patient and his are at the lowest level of care. The person at [facility] states that if the is not longer a flight risk and is no longer combative, she could come back to [facility], but may need to have a private aide with her at all times until her is able to return. She states at this time, she would not recommend that they change to a different apartment because it would cause additional confusion for the . I spoke with Nohemi and referral given. Nohemi states she will have someone talk with them and arrange tours of facilities if needed. CM will continue to follow and assist with discharge planning/needs. DCP- Discharge Planning Updated by [email or web address]: Jeanne Leobardo on 08/31/18 9:[address] Spoke with patient's son (Sebastián) concerning discharge planning. He is uncertain if his father will be able to return to [facility]. He is thinking he will need rehab or skilled therapy. We discussed possible intermediate card tender placement as well. I provided him with MUKUL form with facilities listed. He states he will start looking at other facilities for possible placement. CM will continue to follow and assist with discharge planning/needs. DCP- Discharge Planning Updated by [email or web address]: Noemy Vang on 08/26/18 12:[address] Patient Name: SARIAH DUNHAM Admission Status: ER Accout number: [id number] Admission Date: 08-26-2018 : 1930 Admission Diagnosis: Attending: DANELLE GALLOWAY Current LOS: 1 Anticipated DC Date: 08-29-2018 Planned Disposition: Assisted Living Primary Insurance: MEDICARE A & B Discharge Planning Comments: CM met with patient's son, Sebastián Dunham, to complete initial dc planning assessment. CM educated patient/son on the CM role and verbal consent given by Karlas to complete assessment. Patient lives at [facility] with who he is the primary cg for. His has Alzheimer's disease and requires 10/05 supervision. At discharge patient plans to return to [facility] and Sebastián feels this is a safe discharge. He denied known discharge needs for the patient at this time. CM will continue to follow and will assist as needed with dc plans/needs. See below for more assessment information. Wireless Communications Engineer: Noemy Vang RN, [facility] DCPIA - Discharge Planning Initial Assessment Updated by [email or web address]: Noemy Vang on 08/26/18 1:29 pm * Is the patient Alert and Oriented? Yes * How many steps to enter\\exit or inside your home? None * PCP Dr. Phelps * Pharmacy [facility] * Preadmission Environment Assisted Living * Facility Name [facility] * ADLs Partial Dependent * Partial ADLs (Assistance needed) Bathing Medication Management * Equipment Walker Wheelchair * List name and contact numbers for known caregivers / representatives who currently or will assist patient after discharge: Sebastián Dunham - son - [phone] * Verbal permission to speak to the caregivers and representatives has been obtained from the patient. Yes * Community resources currently utilized None * Additional services required to return to the preadmission environment? No * Can the patient safely return to the preadmission environment? Yes * Has this patient been hospitalized within the prior 30 days at any hospital? No Last DP export: 09/09/18 9:52 Patient Name: SARIAH DUNHAM Page 95510 at 1546 All edits/amendments must be made on the electronic document DICTATION DATE: 09/09/181545 METAL BUGGY OPERATOR: HONORIO 09/09/181545 RPT#: [id number] DC DATE: STATUS: ADM IN [facility] [address] [place] [address] END OF REPORT
[2018-08-26 08:31] VITALS: BP 137/54
[2018-08-26 08:52] LABS: BASOPHILS 0.1 % (0-2); EOSINOPHILS 0 % (0-7); HEMATOCRIT 37.5 % (42.0-54.0); HEMOGLOBIN 12.2 g/dL (13.5-17.5); IMMATURE GRANULOCYTES 0.3 % (0-5); LYMPHOCYTES 2.8 % (15-50); MCHC 32.5 g/dL (31.0-37.0); MCV 92.4 fL (80.0-100.0); MEAN PLATELET VOLUME 11.6 fL (7.4-10.4); MONOCYTES 8.3 % (2-11); NEUTROPHILS 88.5 % (40-80); RBC 4.06 10x6/uL (4.20-6.10); RDW 14.1 % (11.5-14.5); WBC 15.5 10x3/uL (4.8-10.8)
[2018-08-26 08:56] LABS: PLATELET COUNT 229 10x3/uL (130-400)
[2018-08-26 09:06] LABS: ALBUMIN 2.8 g/dL (3.4-5.0); ALKALINE PHOSPHATASE 83 U/L (46-116); ALT (SGPT) 10 U/L (10-68); AMYLASE - SERUM 33 U/L (25-115); BILIRUBIN - TOTAL 0.79 mg/dL (0.2-1.3); CALC OSMOLALITY 277 mosm/kg (275-300); CARBON DIOXIDE 28.6 mmol/L (21.0-32.0); CHLORIDE - SERUM 103 mmol/L (98-107); CREATININE - SERUM 0.7 mg/dL (0.6-1.3); GLUCOSE 105 mg/dL (74-106); LIPASE 56 U/L (73-393); POTASSIUM - SERUM 3.6 mmol/L (3.5-5.1); PROTEIN - SERUM 7.2 g/dL (6.4-8.2); SODIUM 140 mmol/L (136-145); UREA NITROGEN 11 mg/dL (7-18); eGFR NON AFRICAN AMERICAN > 90 mL/min (90-120)
[2018-08-26 10:00] VITALS: BP 149/67
[2018-08-26 10:18] LABS: APPEARANCE CLEAR (CLEAR); BACTERIA NONE SEEN /hpf (NONE SEEN); BILIRUBIN NEGATIVE (NEGATIVE); COLOR YELLOW (YELLOW); EPITHELIAL CELLS NSEEN /hpf (0-5); GLUCOSE NEGATIVE (NEGATIVE); KETONE NEGATIVE (NEGATIVE); NITRITE NEGATIVE (NEGATIVE); PROTEIN NEGATIVE (NEGATIVE); RED CELLS - URINE NONE SEEN /hpf (0-5); SPECIFIC GRAVITY 1.015 (1.005-1.020); WHITE CELLS - URINE NSEEN /hpf (0-5)
[2018-08-26 11:30] VITALS: BP 137/65
[2018-08-26 12:34] VITALS: BP 131/60
[2018-08-26 16:02] VITALS: BP 100/47; BMI 19.0
[2018-08-26 21:16] VITALS: BP 125/56
[2018-08-27] VITALS (11 sets, daily range): BP systolic 96–123; BP diastolic 40–64; BMI 19.0
[2018-08-27 06:45] LABS: BASOPHILS 0.1 % (0-2); EOSINOPHILS 0 % (0-7); HEMATOCRIT 35.9 % (42.0-54.0); HEMOGLOBIN 11.5 g/dL (13.5-17.5); IMMATURE GRANULOCYTES 0.4 % (0-5); LYMPHOCYTES 5.6 % (15-50); MCH 29.7 pg (26.0-34.0); MCV 92.8 fL (80.0-100.0); MEAN PLATELET VOLUME 12.1 fL (7.4-10.4); MONOCYTES 9.5 % (2-11); NEUTROPHILS 84.4 % (40-80); PLATELET COUNT 231 10x3/uL (130-400); RBC 3.87 10x6/uL (4.20-6.10); RDW 14.5 % (11.5-14.5)
[2018-08-27 06:47] LABS: INR 1.49 (0.85-1.17); PROTIME 17.5 SECONDS (11.6-15.0); WBC 19.7 10x3/uL (4.8-10.8)
[2018-08-27 07:04] LABS: ALBUMIN 2.1 g/dL (3.4-5.0); ALKALINE PHOSPHATASE 68 U/L (46-116); ALT (SGPT) 9 U/L (10-68); BILIRUBIN - TOTAL 1.12 mg/dL (0.2-1.3); CALC OSMOLALITY 276 mosm/kg (275-300); CALCIUM 8.4 mg/dL (8.5-10.1); CARBON DIOXIDE 28.7 mmol/L (21.0-32.0); CHLORIDE - SERUM 102 mmol/L (98-107); CREATININE - SERUM 0.7 mg/dL (0.6-1.3); GLUCOSE 118 mg/dL (74-106); POTASSIUM - SERUM 3.5 mmol/L (3.5-5.1); PROTEIN - SERUM 6.2 g/dL (6.4-8.2); SODIUM 138 mmol/L (136-145); UREA NITROGEN 13 mg/dL (7-18); eGFR NON AFRICAN AMERICAN > 90 mL/min (90-120)
[2018-08-27 16:09] LABS: PROTEIN - BODY FLUID 4.9 G/DL
[2018-08-27 16:36] LABS: EOS BF 0 %; MACROPHAGES BF 0 %; MESOTHELIALS BF 0 %; NEUT - BF 98 %
[2018-08-28 06:03] VITALS: BP 127/66
[2018-08-28 07:44] LABS: BASOPHILS 0 % (0-2); EOSINOPHILS 0 % (0-7); HEMATOCRIT 33.9 % (42.0-54.0); IMMATURE GRANULOCYTES 0.4 % (0-5); MCH 29.6 pg (26.0-34.0); MCHC 32.4 g/dL (31.0-37.0); MCV 91.1 fL (80.0-100.0); MEAN PLATELET VOLUME 12.3 fL (7.4-10.4); MONOCYTES 9.6 % (2-11); PLATELET COUNT 192 10x3/uL (130-400); RBC 3.72 10x6/uL (4.20-6.10); RDW 14.3 % (11.5-14.5); WBC 16.1 10x3/uL (4.8-10.8)
[2018-08-28 08:04] LABS: CALC OSMOLALITY 272 mosm/kg (275-300); CALCIUM 8.4 mg/dL (8.5-10.1); CHLORIDE - SERUM 103 mmol/L (98-107); CREATININE - SERUM 0.5 mg/dL (0.6-1.3); GLUCOSE 112 mg/dL (74-106); MAGNESIUM - SERUM 2.2 mg/dL (1.8-2.4); POTASSIUM - SERUM 3.5 mmol/L (3.5-5.1); SODIUM 136 mmol/L (136-145); UREA NITROGEN 13 mg/dL (7-18); eGFR NON AFRICAN AMERICAN > 90 mL/min (90-120)
[2018-08-28 20:00] VITALS: BP 103/64
[2018-08-29 06:30] LABS: CALC OSMOLALITY 277 mosm/kg (275-300); CALCIUM 7.7 mg/dL (8.5-10.1); CARBON DIOXIDE 23.5 mmol/L (21.0-32.0); CHLORIDE - SERUM 104 mmol/L (98-107); CREATININE - SERUM 0.5 mg/dL (0.6-1.3); GLUCOSE 99 mg/dL (74-106); MAGNESIUM - SERUM 1.9 mg/dL (1.8-2.4); SODIUM 139 mmol/L (136-145); UREA NITROGEN 13 mg/dL (7-18); eGFR NON AFRICAN AMERICAN > 90 mL/min (90-120)
[2018-08-29 06:35] LABS: POTASSIUM - SERUM 4.1 mmol/L (3.5-5.1)
[2018-08-29 06:43] LABS: BASOPHILS 0.1 % (0-2); EOSINOPHILS 0.1 % (0-7); HEMOGLOBIN 11.3 g/dL (13.5-17.5); IMMATURE GRANULOCYTES 0.4 % (0-5); LYMPHOCYTES 8.4 % (15-50); MCH 29.9 pg (26.0-34.0); MCHC 33.2 g/dL (31.0-37.0); MCV 89.9 fL (80.0-100.0); MEAN PLATELET VOLUME 12.8 fL (7.4-10.4); MONOCYTES 7.1 % (2-11); NEUTROPHILS 83.9 % (40-80); PLATELET COUNT 216 10x3/uL (130-400); RBC 3.78 10x6/uL (4.20-6.10); RDW 14.1 % (11.5-14.5); WBC 13.2 10x3/uL (4.8-10.8)
[2018-08-29 08:21] VITALS: BP 140/77
[2018-08-29 12:38] VITALS: BP 120/52
[2018-08-29 20:00] VITALS: BP 151/66
[2018-08-30 05:00] VITALS: BP 139/79
[2018-08-30 06:05] LABS: BASOPHILS 0.1 % (0-2); EOSINOPHILS 0.4 % (0-7); HEMATOCRIT 33.5 % (42.0-54.0); IMMATURE GRANULOCYTES 0.5 % (0-5); LYMPHOCYTES 13.1 % (15-50); MCH 29.9 pg (26.0-34.0); MCHC 32.8 g/dL (31.0-37.0); MEAN PLATELET VOLUME 12.6 fL (7.4-10.4); MONOCYTES 9.4 % (2-11); NEUTROPHILS 76.5 % (40-80); RBC 3.68 10x6/uL (4.20-6.10); RDW 14.1 % (11.5-14.5); WBC 11.2 10x3/uL (4.8-10.8)
[2018-08-30 06:20] LABS: CALC OSMOLALITY 277 mosm/kg (275-300); CALCIUM 7.7 mg/dL (8.5-10.1); CARBON DIOXIDE 27.5 mmol/L (21.0-32.0); CHLORIDE - SERUM 104 mmol/L (98-107); CREATININE - SERUM 0.5 mg/dL (0.6-1.3); GLUCOSE 97 mg/dL (74-106); SODIUM 140 mmol/L (136-145); UREA NITROGEN 11 mg/dL (7-18); eGFR NON AFRICAN AMERICAN > 90 mL/min (90-120)
[2018-08-30 06:21] LABS: POTASSIUM - SERUM 3.4 mmol/L (3.5-5.1)
[2018-08-30 06:26] LABS: PLATELET COUNT 279 10x3/uL (130-400)
[2018-08-30 07:43] VITALS: BP 132/60
[2018-08-30 10:27] VITALS: BP 139/71
[2018-08-30 16:07] VITALS: BP 129/67
[2018-08-30 20:00] VITALS: BP 100/61
[2018-08-30 20:08] LABS: ACID FAST SMEAR Negative (()); AFB SPECIMEN PROCESSING Concentration (())
[2018-08-31 05:00] VITALS: BP 148/75
[2018-08-31 06:27] LABS: CALC OSMOLALITY 274 mosm/kg (275-300); CALCIUM 8.2 mg/dL (8.5-10.1); CARBON DIOXIDE 27.7 mmol/L (21.0-32.0); CHLORIDE - SERUM 103 mmol/L (98-107); CREATININE - SERUM 0.5 mg/dL (0.6-1.3); GLUCOSE 107 mg/dL (74-106); POTASSIUM - SERUM 3.3 mmol/L (3.5-5.1); SODIUM 137 mmol/L (136-145); eGFR NON AFRICAN AMERICAN > 90 mL/min (90-120)
[2018-08-31 06:34] LABS: UREA NITROGEN 14 mg/dL (7-18)
[2018-08-31 06:58] LABS: BASOPHILS 0.2 % (0-2); EOSINOPHILS 0.3 % (0-7); HEMATOCRIT 33.4 % (42.0-54.0); HEMOGLOBIN 10.7 g/dL (13.5-17.5); IMMATURE GRANULOCYTES 0.4 % (0-5); LYMPHOCYTES 5.1 % (15-50); MCH 29.5 pg (26.0-34.0); MEAN PLATELET VOLUME 12.5 fL (7.4-10.4); MONOCYTES 14.3 % (2-11); NEUTROPHILS 79.7 % (40-80); PLATELET COUNT 256 10x3/uL (130-400); RBC 3.63 10x6/uL (4.20-6.10); RDW 14.2 % (11.5-14.5); WBC 11.8 10x3/uL (4.8-10.8)
[2018-08-31 08:26] VITALS: BP 131/61
[2018-08-31 12:16] VITALS: BP 115/59
[2018-08-31 13:18] LABS: FUNGUS STAIN Final report (())
[2018-08-31 17:05] VITALS: BP 128/63
[2018-08-31 17:36] LABS: APPEARANCE CLEAR (CLEAR); COLOR YELLOW (YELLOW); GLUCOSE NEGATIVE (NEGATIVE); KETONE NEGATIVE (NEGATIVE); NITRITE NEGATIVE (NEGATIVE); PROTEIN NEGATIVE (NEGATIVE); SPECIFIC GRAVITY 1.015 (1.005-1.020); UROBILINOGEN NORMAL (NORMAL)
[2018-08-31 17:37] LABS: BILIRUBIN NEGATIVE (NEGATIVE)
[2018-08-31 17:40] LABS: RED CELLS - URINE OCC /hpf (0-5); WHITE CELLS - URINE 0-5 /hpf (0-5)
[2018-08-31 17:41] LABS: BACTERIA FEW /hpf (NONE SEEN); EPITHELIAL CELLS NSEEN /hpf (0-5)
[2018-08-31 20:00] VITALS: BP 138/68
[2018-09-01 06:54] LABS: HEMATOCRIT 32.6 % (42.0-54.0); HEMOGLOBIN 10.6 g/dL (13.5-17.5); MCH 29.4 pg (26.0-34.0); MCHC 32.5 g/dL (31.0-37.0); MCV 90.6 fL (80.0-100.0); NEUTROPHILS 82.5 % (40-80); RDW 14.2 % (11.5-14.5)
[2018-09-01 06:55] LABS: BASOPHILS 0.1 % (0-2); EOSINOPHILS 0.1 % (0-7); IMMATURE GRANULOCYTES 0.5 % (0-5); LYMPHOCYTES 3.8 % (15-50)
[2018-09-01 06:57] LABS: PLATELET COUNT 311 10x3/uL (130-400); WBC 14.8 10x3/uL (4.8-10.8)
[2018-09-01 07:09] LABS: CALC OSMOLALITY 273 mosm/kg (275-300); CALCIUM 8.1 mg/dL (8.5-10.1); CARBON DIOXIDE 25.3 mmol/L (21.0-32.0); CHLORIDE - SERUM 103 mmol/L (98-107); CREATININE - SERUM 0.6 mg/dL (0.6-1.3); GLUCOSE 101 mg/dL (74-106); POTASSIUM - SERUM 3.4 mmol/L (3.5-5.1); SODIUM 137 mmol/L (136-145); UREA NITROGEN 13 mg/dL (7-18); eGFR NON AFRICAN AMERICAN > 90 mL/min (90-120)
[2018-09-01 08:28] VITALS: BP 123/66
[2018-09-01 12:52] VITALS: BP 135/73
[2018-09-01 16:07] VITALS: BP 105/52
[2018-09-01 21:46] VITALS: BP 126/61
[2018-09-02] VITALS (12 sets, daily range): BP systolic 90–143; BP diastolic 45–78
[2018-09-02 06:25] LABS: BASOPHILS 0.1 % (0-2); EOSINOPHILS 0.4 % (0-7); HEMATOCRIT 31.4 % (42.0-54.0); IMMATURE GRANULOCYTES 0.5 % (0-5); LYMPHOCYTES 5.7 % (15-50); MCH 29.1 pg (26.0-34.0); MCHC 31.8 g/dL (31.0-37.0); MCV 91.3 fL (80.0-100.0); MEAN PLATELET VOLUME 11.5 fL (7.4-10.4); MONOCYTES 11.8 % (2-11); NEUTROPHILS 81.5 % (40-80); PLATELET COUNT 311 10x3/uL (130-400); RBC 3.44 10x6/uL (4.20-6.10); RDW 14.5 % (11.5-14.5); WBC 12.5 10x3/uL (4.8-10.8)
[2018-09-02 06:30] LABS: CALC OSMOLALITY 279 mosm/kg (275-300); CALCIUM 7.9 mg/dL (8.5-10.1); CARBON DIOXIDE 27.1 mmol/L (21.0-32.0); CHLORIDE - SERUM 104 mmol/L (98-107); CREATININE - SERUM 0.6 mg/dL (0.6-1.3); GLUCOSE 109 mg/dL (74-106); POTASSIUM - SERUM 3.3 mmol/L (3.5-5.1); SODIUM 139 mmol/L (136-145); UREA NITROGEN 15 mg/dL (7-18); eGFR NON AFRICAN AMERICAN > 90 mL/min (90-120)
[2018-09-02 11:28] LABS: APTT 39.6 SECONDS (22.8-39.4); INR 1.33 (0.85-1.17); PROTIME 16.2 SECONDS (11.6-15.0)
[2018-09-02 12:35] LABS: APTT 45.8 SECONDS (22.8-39.4); INR 1.4 (0.85-1.17); PROTIME 16.8 SECONDS (11.6-15.0)
[2018-09-02 18:10] LABS: PROTEIN - BODY FLUID 14.1 G/DL
[2018-09-02 18:32] LABS: EOS BF 1 %; MACROPHAGES BF 3 %; MESOTHELIALS BF 4 %; NEUT - BF 82 %
[2018-09-02 19:02] LABS: BASOPHILS 0.2 % (0-2); EOSINOPHILS 0.4 % (0-7); IMMATURE GRANULOCYTES 0.8 % (0-5); LYMPHOCYTES 7.9 % (15-50); MCH 30.2 pg (26.0-34.0); MCHC 31.8 g/dL (31.0-37.0); MEAN PLATELET VOLUME 12.3 fL (7.4-10.4); MONOCYTES 6.7 % (2-11); RBC 3.97 10x6/uL (4.20-6.10); RDW 15.1 % (11.5-14.5)
[2018-09-02 19:03] LABS: HEMATOCRIT 37.7 % (42.0-54.0); WBC 18.1 10x3/uL (4.8-10.8)
[2018-09-02 19:04] LABS: PLATELET COUNT 173 10x3/uL (130-400)
[2018-09-03] VITALS (18 sets, daily range): BP systolic 73–142; BP diastolic 48–93
[2018-09-03 04:33] LABS: BASOPHILS 0.1 % (0-2); EOSINOPHILS 0 % (0-7); HEMOGLOBIN 9.8 g/dL (13.5-17.5); IMMATURE GRANULOCYTES 0.5 % (0-5); MCH 29.3 pg (26.0-34.0); MCHC 32.6 g/dL (31.0-37.0); MEAN PLATELET VOLUME 11.6 fL (7.4-10.4); MONOCYTES 11.9 % (2-11); NEUTROPHILS 80.5 % (40-80); RBC 3.34 10x6/uL (4.20-6.10); RDW 14.8 % (11.5-14.5)
[2018-09-03 04:34] LABS: HEMATOCRIT 30.1 % (42.0-54.0); MCV 90.1 fL (80.0-100.0); PLATELET COUNT 284 10x3/uL (130-400); WBC 13.5 10x3/uL (4.8-10.8)
[2018-09-03 05:14] LABS: ALBUMIN 1.4 g/dL (3.4-5.0); ALKALINE PHOSPHATASE 55 U/L (46-116); ALT (SGPT) 12 U/L (10-68); BILIRUBIN - TOTAL 0.78 mg/dL (0.2-1.3); CALC OSMOLALITY 279 mosm/kg (275-300); CALCIUM 7.6 mg/dL (8.5-10.1); CARBON DIOXIDE 24.7 mmol/L (21.0-32.0); CHLORIDE - SERUM 105 mmol/L (98-107); CREATININE - SERUM 0.6 mg/dL (0.6-1.3); GLUCOSE 119 mg/dL (74-106); POTASSIUM - SERUM 3.5 mmol/L (3.5-5.1); PROTEIN - SERUM 4.9 g/dL (6.4-8.2); SODIUM 137 mmol/L (136-145); eGFR NON AFRICAN AMERICAN > 90 mL/min (90-120)
[2018-09-03 05:16] LABS: UREA NITROGEN 27 mg/dL (7-18)
[2018-09-03 19:08] LABS: ACID FAST SMEAR Negative (()); AFB SPECIMEN PROCESSING Concentration (())
[2018-09-04 00:30] VITALS: BP 101/18
[2018-09-04 04:30] VITALS: BP 113/55
[2018-09-04 05:40] LABS: BASOPHILS 0.1 % (0-2); EOSINOPHILS 0.1 % (0-7); IMMATURE GRANULOCYTES 0.5 % (0-5); MCH 29.3 pg (26.0-34.0); MCHC 32.1 g/dL (31.0-37.0); MCV 91.2 fL (80.0-100.0); MEAN PLATELET VOLUME 11.3 fL (7.4-10.4); MONOCYTES 8.9 % (2-11); NEUTROPHILS 83.4 % (40-80); PLATELET COUNT 308 10x3/uL (130-400); RBC 3.07 10x6/uL (4.20-6.10); RDW 14.9 % (11.5-14.5); WBC 12.1 10x3/uL (4.8-10.8)
[2018-09-04 05:55] LABS: ALBUMIN 1.3 g/dL (3.4-5.0); ALKALINE PHOSPHATASE 54 U/L (46-116); BILIRUBIN - TOTAL 0.42 mg/dL (0.2-1.3); CALC OSMOLALITY 281 mosm/kg (275-300); CALCIUM 7.7 mg/dL (8.5-10.1); CARBON DIOXIDE 26.2 mmol/L (21.0-32.0); CHLORIDE - SERUM 106 mmol/L (98-107); CREATININE - SERUM 0.5 mg/dL (0.6-1.3); GLUCOSE 128 mg/dL (74-106); POTASSIUM - SERUM 3.3 mmol/L (3.5-5.1); SODIUM 138 mmol/L (136-145); UREA NITROGEN 23 mg/dL (7-18); eGFR NON AFRICAN AMERICAN > 90 mL/min (90-120)
[2018-09-04 05:57] LABS: ALT (SGPT) 8 U/L (10-68)
[2018-09-04 09:15] VITALS: BP 105/53
[2018-09-04 10:07] VITALS: Ht 182.9 cm; Wt 63.5 kg
[2018-09-04 13:00] VITALS: BP 114/55
[2018-09-04 16:50] VITALS: BP 112/55
[2018-09-04 20:00] VITALS: BP 127/63
[2018-09-05] VITALS: BP 119/56
[2018-09-05 04:00] VITALS: BP 112/59
[2018-09-05 06:00] LABS: BASOPHILS 0 % (0-2); EOSINOPHILS 0.1 % (0-7); HEMATOCRIT 28.1 % (42.0-54.0); HEMOGLOBIN 8.9 g/dL (13.5-17.5); IMMATURE GRANULOCYTES 0.5 % (0-5); LYMPHOCYTES 5.5 % (15-50); MCH 29.1 pg (26.0-34.0); MCHC 31.7 g/dL (31.0-37.0); MCV 91.8 fL (80.0-100.0); MEAN PLATELET VOLUME 11.2 fL (7.4-10.4); NEUTROPHILS 82.9 % (40-80); PLATELET COUNT 332 10x3/uL (130-400); RBC 3.06 10x6/uL (4.20-6.10); RDW 14.8 % (11.5-14.5)
[2018-09-05 06:38] LABS: ALBUMIN 1.4 g/dL (3.4-5.0); ALKALINE PHOSPHATASE 58 U/L (46-116); ALT (SGPT) 10 U/L (10-68); BILIRUBIN - TOTAL 0.44 mg/dL (0.2-1.3); CALC OSMOLALITY 280 mosm/kg (275-300); CALCIUM 7.6 mg/dL (8.5-10.1); CARBON DIOXIDE 25.7 mmol/L (21.0-32.0); CHLORIDE - SERUM 106 mmol/L (98-107); CREATININE - SERUM 0.6 mg/dL (0.6-1.3); GLUCOSE 112 mg/dL (74-106); PHOSPHOROUS 2.6 mg/dL (2.5-4.9); POTASSIUM - SERUM 3.6 mmol/L (3.5-5.1); PROTEIN - SERUM 5.2 g/dL (6.4-8.2); SODIUM 139 mmol/L (136-145); UREA NITROGEN 18 mg/dL (7-18); eGFR NON AFRICAN AMERICAN > 90 mL/min (90-120)
[2018-09-05 07:45] VITALS: BP 121/53
[2018-09-05 10:11] LABS: FUNGUS MYCOLOGY CULTURE Preliminary report (())
[2018-09-05 11:16] LABS: FUNGUS STAIN Final report (())
[2018-09-05 17:05] VITALS: BP 122/62
[2018-09-05 18:41] VITALS: BP 133/62
[2018-09-05 20:00] VITALS: BP 118/66
[2018-09-06] VITALS: BP 134/68
[2018-09-06 04:43] LABS: BASOPHILS 0.1 % (0-2); EOSINOPHILS 0.6 % (0-7); HEMATOCRIT 29.7 % (42.0-54.0); HEMOGLOBIN 9.5 g/dL (13.5-17.5); IMMATURE GRANULOCYTES 0.5 % (0-5); LYMPHOCYTES 5.9 % (15-50); MCH 29.9 pg (26.0-34.0); MCV 93.4 fL (80.0-100.0); MEAN PLATELET VOLUME 11.9 fL (7.4-10.4); MONOCYTES 11.9 % (2-11); RBC 3.18 10x6/uL (4.20-6.10); RDW 14.9 % (11.5-14.5); WBC 11.7 10x3/uL (4.8-10.8)
[2018-09-06 04:59] LABS: PLATELET COUNT 254 10x3/uL (130-400)
[2018-09-06 05:19] LABS: ALBUMIN 1.5 g/dL (3.4-5.0); ALKALINE PHOSPHATASE 65 U/L (46-116); ALT (SGPT) 11 U/L (10-68); BILIRUBIN - TOTAL 0.39 mg/dL (0.2-1.3); CALC OSMOLALITY 279 mosm/kg (275-300); CALCIUM 7.6 mg/dL (8.5-10.1); CARBON DIOXIDE 27.2 mmol/L (21.0-32.0); CHLORIDE - SERUM 105 mmol/L (98-107); CREATININE - SERUM 0.5 mg/dL (0.6-1.3); GLUCOSE 122 mg/dL (74-106); POTASSIUM - SERUM 4.1 mmol/L (3.5-5.1); PROTEIN - SERUM 4.9 g/dL (6.4-8.2); SODIUM 139 mmol/L (136-145); UREA NITROGEN 15 mg/dL (7-18); eGFR NON AFRICAN AMERICAN > 90 mL/min (90-120)
[2018-09-06 07:21] VITALS: BP 130/65
[2018-09-06 08:43] VITALS: BP 130/61
[2018-09-06 17:16] VITALS: BP 135/70
[2018-09-06 22:17] VITALS: BP 108/63
[2018-09-07 01:08] VITALS: BP 110/66
[2018-09-07 05:08] VITALS: BP 136/74
[2018-09-07 06:32] LABS: BASOPHILS 0.1 % (0-2); EOSINOPHILS 0.2 % (0-7); HEMATOCRIT 29.5 % (42.0-54.0); HEMOGLOBIN 9.3 g/dL (13.5-17.5); IMMATURE GRANULOCYTES 0.5 % (0-5); LYMPHOCYTES 5.5 % (15-50); MCH 29.4 pg (26.0-34.0); MCHC 31.5 g/dL (31.0-37.0); MCV 93.4 fL (80.0-100.0); MONOCYTES 12.1 % (2-11); NEUTROPHILS 81.6 % (40-80); RBC 3.16 10x6/uL (4.20-6.10); RDW 15.1 % (11.5-14.5); WBC 13.4 10x3/uL (4.8-10.8)
[2018-09-07 06:33] LABS: PLATELET COUNT 353 10x3/uL (130-400)
[2018-09-07 06:39] LABS: ALBUMIN 1.4 g/dL (3.4-5.0); ALKALINE PHOSPHATASE 62 U/L (46-116); BILIRUBIN - TOTAL 0.44 mg/dL (0.2-1.3); CALC OSMOLALITY 276 mosm/kg (275-300); CALCIUM 7.6 mg/dL (8.5-10.1); CARBON DIOXIDE 24.7 mmol/L (21.0-32.0); CHLORIDE - SERUM 105 mmol/L (98-107); CREATININE - SERUM 0.5 mg/dL (0.6-1.3); GLUCOSE 103 mg/dL (74-106); PROTEIN - SERUM 5.7 g/dL (6.4-8.2); SODIUM 138 mmol/L (136-145); UREA NITROGEN 16 mg/dL (7-18); eGFR NON AFRICAN AMERICAN > 90 mL/min (90-120)
[2018-09-07 06:43] LABS: ALT (SGPT) 8 U/L (10-68)
[2018-09-07 08:27] VITALS: BP 128/73
[2018-09-07 12:20] VITALS: BP 126/70
[2018-09-07 20:00] VITALS: BP 123/68
[2018-09-08] VITALS: BP 116/61
[2018-09-08 04:00] VITALS: BP 111/60
[2018-09-08 06:26] LABS: BASOPHILS 0 % (0-2); EOSINOPHILS 0.4 % (0-7); HEMATOCRIT 28.8 % (42.0-54.0); HEMOGLOBIN 9.2 g/dL (13.5-17.5); IMMATURE GRANULOCYTES 0.7 % (0-5); LYMPHOCYTES 6.5 % (15-50); MCH 29.8 pg (26.0-34.0); MCHC 31.9 g/dL (31.0-37.0); MCV 93.2 fL (80.0-100.0); MEAN PLATELET VOLUME 10.8 fL (7.4-10.4); MONOCYTES 13.9 % (2-11); NEUTROPHILS 78.5 % (40-80); PLATELET COUNT 359 10x3/uL (130-400); RBC 3.09 10x6/uL (4.20-6.10); RDW 15.1 % (11.5-14.5)
[2018-09-08 07:34] LABS: CALC OSMOLALITY 271 mosm/kg (275-300); CALCIUM 7.8 mg/dL (8.5-10.1); CARBON DIOXIDE 24.7 mmol/L (21.0-32.0); CHLORIDE - SERUM 104 mmol/L (98-107); CREATININE - SERUM 0.4 mg/dL (0.6-1.3); GLUCOSE 100 mg/dL (74-106); SODIUM 136 mmol/L (136-145); UREA NITROGEN 13 mg/dL (7-18); eGFR NON AFRICAN AMERICAN > 90 mL/min (90-120)
[2018-09-08 08:41] VITALS: BP 132/70
[2018-09-08 15:08] LABS: FUNGUS MYCOLOGY CULTURE Preliminary report (())
[2018-09-08 20:00] VITALS: BP 141/71
[2018-09-09] VITALS: BP 135/64
[2018-09-09 04:00] VITALS: BP 137/70
[2018-09-09 09:00] VITALS: BP 137/87
[2018-09-09 12:30] VITALS: BP 130/70
[2018-09-09 16:27] VITALS: BP 122/62
== END 2018-09-09 18:44 | disposition home health service (06) | DRG 853 ==
LOC: D.ER 07:38 → D.MS 11:50 → D.EDHOLD 11:50 → D.MS 12:51 → D.ICU 09-02 16:40 → D.MS 09-03 20:22
PROVIDERS: Emergency Medicine; Family Medicine; Internal Medicine Nephrology; Internal Medicine Pulmonary Disease; Radiology Diagnostic Radiology; Radiology Vascular & Interventional Radiology
PROC: 0W9B30Z Drainage of Left Pleural Cavity with Drainage Device, Percutaneous Approach (ICD-10-PCS; principal; 2018-08-27 11:15)
PROC: 03LY3DZ Occlusion of Upper Artery with Intraluminal Device, Percutaneous Approach (ICD-10-PCS; 2018-09-02)
PROC: 0W9B3ZZ Drainage of Left Pleural Cavity, Percutaneous Approach (ICD-10-PCS; 2018-09-02)
DX: A41.9 Sepsis, unspecified organism (principal); J69.0 Pneumonitis due to inhalation of food and vomit; J85.1 Abscess of lung with pneumonia; E43 Unspecified severe protein-calorie malnutrition; Z68.1 Body mass index [BMI] 19.9 or less, adult; J95.62 Intraoperative hemorrhage and hematoma of a respiratory system organ or structure complicating other procedure; J43.9 Emphysema, unspecified; L89.151 Pressure ulcer of sacral region, stage 1; I10 Essential (primary) hypertension